=== PATIENT | female | born 1970 | race Two or more races ===

== ENCOUNTER 2020-08-20 12:24 | Outpatient (REF) | payer OTHER, SELFPAY ==
[2020-08-20 13:45] LABS: Alanine Aminotransferase 13 U/L (0-31); Albumin Level 4.3 g/dL (3.5-5.0); Alkaline Phosphatase 130 U/L (39-117); Anion Gap 15 (12-20); Aspartate Amino Transferase 19 U/L (5-31); Bilirubin Total 0.3 mg/dL (0.0-1.0); Blood Urea Nitrogen 14 mg/dL (9-16); Calcium 9.4 mg/dL (8.4-10.2); Carbon Dioxide 28 mmol/L (22-29); Chloride 101 mmol/L (96-108); Estimated Glomerular Filt Rate > 60; Glucose Random 90 mg/dL (60-115); Potassium 4.5 mmol/l (3.3-5.1); Sodium 139 mmol/L (135-145)
[2020-08-20 14:07] LABS: Thyroid Stimulating Hormone 0.91 uIU/mL (0.32-4.0); Vitamin D 25-OH Total 24.5 ng/mL (>30)
[2020-08-22 08:42] LABS: Calcium (PTHI) 9.5 mg/dL (8.6-10.2); PTHI 63 pg/mL (14-64)
== END 2020-08-20 12:25 | disposition home or self-care (01) ==
LOC: HO.LAB 12:24
PROVIDERS: PCP Internal Medicine; Visit Provider Internal Medicine
DX: M81.0 Age-related osteoporosis without current pathological fracture (principal); E55.9 Vitamin D deficiency, unspecified; E04.2 Nontoxic multinodular goiter
CPT/HCPCS: 36415; 80053; 82306; 83970; 84443

== ENCOUNTER → 2020-08-24 07:39 | Outpatient (BNVA) | payer OTHER, SELFPAY | PROVIDERS: PCP Internal Medicine; Referring Provider Internal Medicine; Visit Provider Internal Medicine | DX: M81.0 Age-related osteoporosis without current pathological fracture (principal); E55.9 Vitamin D deficiency, unspecified; E04.2 Nontoxic multinodular goiter | CPT/HCPCS: Q3014 ==

== ENCOUNTER 2020-09-16 08:05 | Outpatient (REF) | payer OTHER, SELFPAY ==
--- NOTE | ~2020-09-16 | MM_ITS ---
EXAMINATION: BONE DENSITOMETRY CLINICAL INDICATION: Osteoporosis. COMPARISON: Baseline BD dated 09/18/2018. Radiographs lumbar spine 09/20/2006. TECHNIQUE: Using a [employer] DXA System (software version: 13.1) manufactured by [employer], dual-energy x-ray absorptiometry was performed of the lumbar spine and left hip. The images are of good technical quality. Summary results are attached. FINDINGS: AP SPINE L2-L4 (excluding L1): The data of L1-L4 has been changed to exclude the L1 vertebral body, because probable mild degenerative change at this level may cause overestimation of lumbar spine density. Current: BMD 0.802 g/cm2, Z-score -3.6, T-score -3.3, osteoporosis, 13.4% increase from baseline (<5% change is not significant). Baseline: BMD 0.707 g/cm2. LEFT FEMUR, NECK: Current: BMD 0.919 g/cm2, Z-score -0.5, T-score -0.9, normal. Prior measured was RIGHT (BMD 0.962 g/cm2, Z-score -0.2, T-score -0.5, normal). LEFT FEMUR, TOTAL: Current: BMD 0.923 g/cm2, Z-score -0.6, T-score -0.7, normal. Prior measured was RIGHT (BMD 0.954 g/cm2, Z-score -0.4, T-score -0.4, normal). IDENTIFIED RISK FACTORS: Early menopause, height loss, osteoporosis, secondary osteoporosis. HISTORY OF FRACTURE: Prior history childhood fracture hip, left. Unremarkable left hip on radiograph 2006. No insufficiency fracture reported. MEDICATIONS: Calcium, vitamin D. MM/XR DEXA axial skeleton IMPRESSION: 1. DIAGNOSIS: Osteoporosis based on the lowest T-score value of -3.3 in the lumbar spine applying World Health Organization criteria. 2. 10-YEAR FRACTURE RISK PREDICTION, FRAX: Major osteoporotic fracture (clinical spine, forearm, hip or shoulder) 1.8%. Hip fracture 0.1%. 3. Treatment Recommendations: NOF guidelines recommend consideration for treatment in postmenopausal women and men age 50 and older presenting with the following: -A hip or vertebral (clinical or morphometric) fracture. -T-score less than or equal to -2.5 at the femoral neck or spine after appropriate evaluation to exclude secondary causes. -Low bone mass at the hip or spine and a 10-year fracture probability by FRAX of greater than or equal to 3% for hip fracture or greater than or equal to 20% for major osteoporotic fracture based on the [place] adapted WHO algorithm. 4. Other Recommendations: All treatment decisions require clinical judgment and consideration of individual patient factors, including patient preferences, comorbidities, previous drug use, risk factors not captured in the FRAX model (e.g. frailty, falls, vitamin D deficiency, increased bone turnover, interval significant decline in bone density) and possible under or overestimation of fracture risk by FRAX. Additional medical evaluation for secondary cause of low bone mineral density may be appropriate. FUTURE SCAN RECOMMENDATION: People with diagnosed cases of osteoporosis or at high risk for fracture should have regular bone mineral density tests. For patients eligible for Medicare, routine testing is allowed once every 2 years. The testing frequency can be increased to one year for patients who have rapidly progressing disease, those who are receiving or discontinuing medical therapy to restore bone mass, or have additional risk factors.
== END 2020-09-16 08:06 | disposition home or self-care (01) ==
LOC: HO.MAMMO 08:05
PROVIDERS: PCP Internal Medicine; Visit Provider Internal Medicine
DX: M81.0 Age-related osteoporosis without current pathological fracture (principal); Z78.0 Asymptomatic menopausal state; Z79.899 Other long term (current) drug therapy
CPT/HCPCS: 77080

== ENCOUNTER → 2020-09-23 07:53 | Outpatient (BNVA) | payer OTHER, SELFPAY | PROVIDERS: PCP Internal Medicine; Visit Provider Internal Medicine Endocrinology, Diabetes & Metabolism | DX: Z71.89 Other specified counseling (principal) | CPT/HCPCS: 99211 ==

== ENCOUNTER → 2020-10-26 07:26 | Outpatient (BNVA) | payer OTHER, SELFPAY | PROVIDERS: PCP Internal Medicine; Visit Provider Internal Medicine | DX: M81.0 Age-related osteoporosis without current pathological fracture (principal); E55.9 Vitamin D deficiency, unspecified; E04.2 Nontoxic multinodular goiter | CPT/HCPCS: Q3014 ==

== ENCOUNTER 2021-02-10 07:19 | Outpatient (REF) | payer OTHER, SELFPAY ==
--- NOTE | ~2021-02-10 | MM_ITS ---
EXAMINATION: MM SCREENING DIGITAL BREAST TOMOSYNTHESIS, BILATERAL CLINICAL INFORMATION: Screening. Asymptomatic. The lifetime risk of breast cancer based on the Tyrer-Cuzick Model is 9%. COMPARISON: Mammography: 01/29/2020, 09/18/2018, 07/12/2014 TECHNIQUE: Digital breast tomosynthesis is performed in both the craniocaudal and mediolateral oblique views along with computer-aided detection (CAD). Synthesized 2D images are generated from the tomosynthesis. FINDINGS: There are scattered areas of fibroglandular density (ACR BI-RADS breast composition Category b). Breast tissue composition borders on heterogeneously dense. Parenchymal pattern is similar to prior studies. There is no interval mass or architectural abnormality or abnormal calcifications. The axilla and skin contours are unremarkable. MM/MM tomosynthesis screening BI IMPRESSION: No mammographic evidence of malignancy. ASSESSMENT: BI-RADS 1: Negative RECOMMENDATION: Routine annual mammography screening. This patient's information was entered into a reminder system with a target due date for their next mammogram.
== END 2021-02-10 07:20 | disposition home or self-care (01) ==
LOC: HO.MAMMO 07:19
PROVIDERS: PCP Internal Medicine; Visit Provider Internal Medicine
DX: Z12.31 Encounter for screening mammogram for malignant neoplasm of breast (principal)
CPT/HCPCS: 77063; 77067

== ENCOUNTER → 2021-04-26 07:56 | Outpatient (BNVA) | payer OTHER, SELFPAY | PROVIDERS: PCP Internal Medicine; Visit Provider Internal Medicine ==

== ENCOUNTER 2021-04-27 06:08 | Outpatient (REF) | payer OTHER, SELFPAY ==
[2021-04-27 07:34] LABS: Albumin Level 4.2 g/dL (3.5-5.0); Calcium 9.6 mg/dL (8.4-10.2)
[2021-04-27 07:52] LABS: Vitamin D 25-OH Total 32.6 ng/mL (>30)
[2021-04-29 05:52] LABS: Calcium (PTHI) 9.6 mg/dL (8.6-10.2); PTHI 48 pg/mL (14-64)
== END 2021-04-27 06:09 | disposition home or self-care (01) ==
LOC: HO.LAB 06:08
PROVIDERS: PCP Internal Medicine; Visit Provider Internal Medicine
DX: M81.0 Age-related osteoporosis without current pathological fracture (principal); E55.9 Vitamin D deficiency, unspecified
CPT/HCPCS: 36415; 82040; 82306; 82310; 83970

== ENCOUNTER 2021-07-16 11:43 | Outpatient (REF) | payer OTHER, SELFPAY ==
[2021-07-16 12:23] LABS: Influenza A PCR NEGATIVE (Negative); Influenza B PCR NEGATIVE (Negative); Resp Syncy Virus RNA Qual PCR NEGATIVE (Negative); SARS COV2 PCR INHOUSE POSITIVE (Negative)
== END 2021-07-16 11:44 | disposition home or self-care (01) ==
LOC: HO.LNP 11:43
PROVIDERS: Visit Provider Physician Assistant Medical
DX: Z20.822 Contact with and (suspected) exposure to COVID-19 (principal); J06.9 Acute upper respiratory infection, unspecified
CPT/HCPCS: 0241U

== ENCOUNTER 2021-10-20 06:10 | Outpatient (REF) | payer OTHER, SELFPAY ==
[2021-10-20 06:41] LABS: MANUAL DIFF FLAG NO
[2021-10-20 07:31] LABS: Basophils Percent Auto 0.8 % (0-2); Eosinophils Absolute Auto 0.3 X10*3/uL (0.0-0.4); Eosinophils Percent Auto 5.4 % (0-4); Imm Gran Abs Auto 0.02 X10*3/uL (0.00-0.03); Imm Gran Pct Auto 0.4 % (0.0-0.4); Lymphocytes Absolute Auto 1.3 X10*3/uL (1.2-4.9); Lymphocytes Percent Auto 25.1 % (20-40); Mean Corpuscular HGB Conc 31.4 g/dl (31.0-35.0); Mean Corpuscular Hemoglobin 28.4 pg (27.0-33.0); Mean Corpuscular Volume 90.4 fL (80.0-98.0); Mean Platelet Volume 9.1 fL (9.4-12.3); Monocytes Absolute Auto 0.4 X10*3/uL (0.1-1.2); Monocytes Percent Auto 8.3 % (2-11); Neutrophils Absolute Auto 3.1 x10*3/uL (2.0-8.3); Platelet Count 313 X10*3/uL (160-400); Red Blood Count 3.87 X10*6/uL (4.20-5.50); Red Cell Distribution Width 13.5 % (11.0-16.0); White Blood Count 5.2 X10*3/uL (4.8-10.8)
[2021-10-20 07:58] LABS: Alanine Aminotransferase 13 U/L (0-31); Albumin Level 3.9 g/dL (3.5-5.0); Alkaline Phosphatase 116 U/L (39-117); Anion Gap 11 (12-20); Aspartate Amino Transferase 17 U/L (5-31); Bilirubin Total 0.3 mg/dL (0.0-1.0); Blood Urea Nitrogen 12 mg/dL (9-16); Calcium 9.1 mg/dL (8.4-10.2); Carbon Dioxide 29 mmol/L (22-29); Chloride 103 mmol/L (96-108); Cholesterol 173 mg/dL; Estimated Glomerular Filt Rate > 60; Glucose Fasting 96 mg/dL (60-99); HDL Cholesterol 46 mg/dL; LDL Cholesterol Calculated 111 mg/dl; Phosphorus 3.8 mg/dL (2.7-4.5); Potassium 4.3 mmol/L (3.3-5.1); Sodium 139 mmol/L (135-145); Total Protein 7.2 g/dL (6.5-8.0); Triglycerides 82 mg/dL
[2021-10-20 08:27] LABS: Free T4 (Free Thyroxine) 1.18 ng/dL (0.71-1.85); Thyroid Stimulating Hormone 1.62 uIU/mL (0.32-4.0)
[2021-10-20 08:48] LABS: Appearance Urine HAZY; Color Urine YELLOW; Glucose Urine UA NEG (NEG); Leukocyte Esterase Urine 1+ (NEG); Nitrite Urine NEG (NEG); PH 6.5 (5.0-8.0); Specific Gravity - Urine 1.025 (1.005-1.025); UACC Culture Trigger YES; Urine Blood NEG (NEG); Urine Ketones NEG (NEG); Urine Protein NEG (NEG-TRACE)
[2021-10-20 09:09] LABS: Bacteria Urine 1+ /LPF; Mucus Urine 1+ /LPF; RBC Urine 0 /HPF (0); Squamous Epithelial Cell Urine 2+ /LPF
[2021-10-21 16:26] LABS: PTHI 79 pg/mL (16-77)
== END 2021-10-20 06:11 | disposition home or self-care (01) ==
LOC: HO.LAB 06:10
PROVIDERS: Absent Provider Internal Medicine; PCP Internal Medicine; Visit Provider Internal Medicine
DX: Z00.00 Encounter for general adult medical examination without abnormal findings (principal); E78.00 Pure hypercholesterolemia, unspecified; E03.9 Hypothyroidism, unspecified; E55.9 Vitamin D deficiency, unspecified; M81.0 Age-related osteoporosis without current pathological fracture
CPT/HCPCS: 36415; 80053; 80061; 81001; 82306; 83970; 84100; 84439; 84443; 85025; 87086; 87147

== ENCOUNTER → 2021-10-25 07:48 | Outpatient (BNVA) | payer OTHER, SELFPAY | PROVIDERS: PCP Internal Medicine; Visit Provider Internal Medicine | DX: M81.0 Age-related osteoporosis without current pathological fracture (principal); E55.9 Vitamin D deficiency, unspecified; E04.2 Nontoxic multinodular goiter | CPT/HCPCS: 99212 ==

== ENCOUNTER 2021-12-15 13:43 | Outpatient (REF) | payer OTHER, SELFPAY ==
[2021-12-15 14:30] LABS: Influenza A PCR NEGATIVE (Negative); Influenza B PCR NEGATIVE (Negative); Resp Syncy Virus RNA Qual PCR NEGATIVE (Negative); SARS COV2 PCR INHOUSE NEGATIVE (Negative)
== END 2021-12-15 13:44 | disposition home or self-care (01) ==
LOC: HO.LNP 13:43
PROVIDERS: Visit Provider Family Medicine
DX: Z20.822 Contact with and (suspected) exposure to COVID-19 (principal); B34.9 Viral infection, unspecified
CPT/HCPCS: 0241U

== ENCOUNTER 2022-02-16 07:15 | Outpatient (REF) | payer OTHER, SELFPAY ==
[2022-02-16 09:08] LABS: Appearance Urine CLEAR; Color Urine YELLOW; Glucose Urine UA NEG (NEG); Leukocyte Esterase Urine NEG (NEG); Nitrite Urine NEG (NEG); PH 5.5 (5.0-8.0); Specific Gravity - Urine >= 1.030 (1.005-1.025); UACC Culture Trigger NO; Urine Blood TRACE (NEG); Urine Ketones NEG (NEG); Urine Protein NEG (NEG-TRACE)
[2022-02-16 09:29] LABS: Alanine Aminotransferase 10 U/L (0-31); Albumin Level 4.1 g/dL (3.5-5.0); Alkaline Phosphatase 121 U/L (39-117); Anion Gap 12 (12-20); Aspartate Amino Transferase 16 U/L (5-31); Bilirubin Total 0.3 mg/dL (0.0-1.0); Blood Urea Nitrogen 16 mg/dL (9-16); Calcium 9.2 mg/dL (8.4-10.2); Carbon Dioxide 29 mmol/L (22-29); Chloride 102 mmol/L (96-108); Estimated Glomerular Filt Rate > 60; Glucose Random 91 mg/dL (60-115); Phosphorus 3.9 mg/dL (2.7-4.5); Potassium 4.6 mmol/L (3.3-5.1); Sodium 138 mmol/L (135-145); Total Protein 7.6 g/dL (6.5-8.0)
[2022-02-16 09:30] LABS: Squamous Epithelial Cell Urine 2+ /LPF
[2022-02-16 09:31] LABS: RBC Urine 0-2 /HPF (0); WBC Urine 0-2 /HPF (0-4)
[2022-02-16 09:40] LABS: Vitamin D 25-OH Total 29.8 ng/mL (>30)
[2022-02-18 11:17] LABS: Calcium (PTHI) 9.3 mg/dL (8.6-10.4); PTHI 43 pg/mL (16-77)
== END 2022-02-16 07:16 | disposition home or self-care (01) ==
LOC: HO.LAB 07:15
PROVIDERS: PCP Internal Medicine; Visit Provider Internal Medicine
DX: Z00.00 Encounter for general adult medical examination without abnormal findings (principal); M81.0 Age-related osteoporosis without current pathological fracture; E55.9 Vitamin D deficiency, unspecified
CPT/HCPCS: 36415; 80053; 81001; 81003; 82306; 83970; 84100

== ENCOUNTER 2022-03-16 07:19 | Outpatient (REF) | payer OTHER, SELFPAY ==
[2022-03-16 08:25] LABS: Alanine Aminotransferase 11 U/L (0-31); Alkaline Phosphatase 114 U/L (39-117); Anion Gap 13 (12-20); Aspartate Amino Transferase 19 U/L (5-31); Bilirubin Total 0.2 mg/dL (0.0-1.0); Blood Urea Nitrogen 12 mg/dL (9-16); Calcium 8.8 mg/dL (8.4-10.2); Carbon Dioxide 29 mmol/L (22-29); Chloride 103 mmol/L (96-108); Estimated Glomerular Filt Rate > 60; Glucose Random 102 mg/dL (60-115); Phosphorus 3.4 mg/dL (2.7-4.5); Sodium 141 mmol/L (135-145); Total Protein 7.4 g/dL (6.5-8.0)
== END 2022-03-16 07:20 | disposition home or self-care (01) ==
LOC: HO.LAB 07:19
PROVIDERS: PCP Internal Medicine; Visit Provider Internal Medicine
DX: Z00.00 Encounter for general adult medical examination without abnormal findings (principal); M81.0 Age-related osteoporosis without current pathological fracture; E55.9 Vitamin D deficiency, unspecified
CPT/HCPCS: 36415; 80053; 82306; 84100

== ENCOUNTER 2022-03-17 08:49 | Outpatient (REF) | payer OTHER, SELFPAY | END 2022-03-17 08:50 | disposition home or self-care (01) | LOC: HO.MDS 08:49 | PROVIDERS: Visit Provider Internal Medicine | DX: M81.0 Age-related osteoporosis without current pathological fracture (principal) | CPT/HCPCS: 96365; J3489 ==

== ENCOUNTER 2022-03-22 07:00 | Outpatient (RCR) | payer OTHER, SELFPAY ==
[2022-02-15 08:03] VITALS: BP 122/70; PULSE 116; O2SAT 98
== END 2022-04-12 14:50 | disposition home or self-care (01) ==
LOC: HO.PTWFD 07:00
PROVIDERS: PCP Internal Medicine; Visit Provider Internal Medicine
DX: S46.812A Strain of other muscles, fascia and tendons at shoulder and upper arm level, left arm, initial encounter (principal)
CPT/HCPCS: 97110; 97140; 97162

== ENCOUNTER → 2022-03-28 07:08 | Outpatient (BNVA) | payer OTHER, SELFPAY | PROVIDERS: PCP Internal Medicine; Visit Provider Internal Medicine | DX: M81.0 Age-related osteoporosis without current pathological fracture (principal); E55.9 Vitamin D deficiency, unspecified; E04.2 Nontoxic multinodular goiter | CPT/HCPCS: 99212 ==

== ENCOUNTER 2022-03-30 07:17 | Outpatient (REF) | payer OTHER, SELFPAY ==
--- NOTE | ~2022-03-30 | MM_ITS ---
EXAMINATION: MM SCREENING DIGITAL BREAST TOMOSYNTHESIS, BILATERAL CLINICAL INFORMATION: Screening. Asymptomatic. The lifetime risk of breast cancer based on the Tyrer-Cuzick Model is 9%. COMPARISON: Mammography: 02/10/2021, 01/29/2020, 09/18/2018 TECHNIQUE: Digital breast tomosynthesis is performed in both the craniocaudal and mediolateral oblique views along with computer-aided detection (CAD). Synthesized 2D images are generated from the tomosynthesis. FINDINGS: There are scattered areas of fibroglandular density (ACR BI-RADS breast composition Category b). Breast tissue composition borders on heterogeneously dense. There are no significant masses, abnormal calcifications, or other abnormalities. There is no developing density or architectural abnormality. The axilla are unremarkable. No significant changes. MM/MM tomosynthesis screening BI IMPRESSION: No mammographic evidence of malignancy. ASSESSMENT: BI-RADS 1: Negative RECOMMENDATION: Routine annual mammography screening. This patient's information was entered into a reminder system with a target due date for their next mammogram.
== END 2022-03-30 07:18 | disposition home or self-care (01) ==
LOC: HO.MAMMO 07:17
PROVIDERS: PCP Internal Medicine; Visit Provider Internal Medicine
DX: Z01.818 Encounter for other preprocedural examination (principal); Z12.31 Encounter for screening mammogram for malignant neoplasm of breast
CPT/HCPCS: 77063; 77067; 99202

== ENCOUNTER 2022-03-31 06:33 | Outpatient (REF) | payer OTHER, SELFPAY ==
[2022-03-31 07:34] LABS: Appearance Urine Clear; Color Urine Yellow; Glucose Urine UA Negative (Negative); Leukocyte Esterase Urine Small (1+) (Negative); Nitrite Urine Negative (Negative); PH 5.5 (5.0-9.0); Specific Gravity - Urine 1.025 (1.005-1.025); Urine Blood Negative (Negative); Urine Ketones Negative (Negative); Urine Protein Negative (Neg-Trace)
[2022-03-31 07:42] LABS: Bacteria Urine None Seen (None Seen); Hyaline Casts Urine 0-2 /LPF (0-2); RBC Urine 0-2 /HPF (0-2); UACC Culture Trigger YES
[2022-03-31 07:45] LABS: Alanine Aminotransferase 11 U/L (0-31); Albumin Level 4.1 g/dL (3.5-5.0); Alkaline Phosphatase 110 U/L (39-117); Anion Gap 15 (12-20); Aspartate Amino Transferase 16 U/L (5-31); Bilirubin Total 0.4 mg/dL (0.0-1.0); Blood Urea Nitrogen 16 mg/dL (9-16); Calcium 8.5 mg/dL (8.4-10.2); Carbon Dioxide 27 mmol/L (22-29); Chloride 103 mmol/L (96-108); Estimated Glomerular Filt Rate > 60; Glucose Random 132 mg/dL (60-115); Potassium 4.1 mmol/L (3.3-5.1); Sodium 141 mmol/L (135-145); Total Protein 7.5 g/dL (6.5-8.0)
[2022-04-01 13:12] LABS: PTHI 114 pg/mL (16-77)
== END 2022-03-31 06:34 | disposition home or self-care (01) ==
LOC: HO.LAB 06:33
PROVIDERS: PCP Internal Medicine; Visit Provider Internal Medicine
DX: M81.0 Age-related osteoporosis without current pathological fracture (principal)
CPT/HCPCS: 36415; 80053; 81001; 83970; 87086; 87147

== ENCOUNTER 2022-04-25 08:38 | Outpatient (REF) | payer OTHER, SELFPAY ==
[2022-04-01 22:37] LABS: HPV mRNA E6/E7 rflx Not Detected (Not Detected)
== END 2022-04-25 08:39 | disposition home or self-care (01) ==
LOC: HO.LAB 08:38
PROVIDERS: Visit Provider Obstetrics & Gynecology
DX: Z01.419 Encounter for gynecological examination (general) (routine) without abnormal findings (principal)
CPT/HCPCS: 87624; 88142

== ENCOUNTER 2022-05-05 13:54 | Outpatient (REF) | payer OTHER, SELFPAY ==
[2022-05-06 13:39] LABS: Influenza A PCR NEGATIVE (Negative); Influenza B PCR NEGATIVE (Negative); Resp Syncy Virus RNA Qual PCR NEGATIVE (Negative); SARS COV2 PCR INHOUSE NEGATIVE (Negative)
== END 2022-05-05 13:55 | disposition home or self-care (01) ==
LOC: HO.LAB 13:54
PROVIDERS: Visit Provider Nurse Practitioner Family
DX: Z20.822 Contact with and (suspected) exposure to COVID-19 (principal); R09.89 Other specified symptoms and signs involving the circulatory and respiratory systems
CPT/HCPCS: 0241U

== ENCOUNTER 2022-06-24 06:02 | Outpatient (REF) | payer OTHER, SELFPAY ==
--- NOTE | ~2022-06-24 | XR_ITS ---
EXAMINATION: XR CHEST CLINICAL INFORMATION: Cough COMPARISON: Previous chest x-ray November 2006 TECHNIQUE: 2 views of the chest were obtained. FINDINGS: No significant abnormality is noted involving the heart, lungs, mediastinum, bony thorax or soft tissues. XR/XR chest 2V IMPRESSION: Unremarkable examination.
== END 2022-06-24 06:03 | disposition home or self-care (01) ==
LOC: HO.XRAY 06:02
PROVIDERS: PCP Internal Medicine; Visit Provider Internal Medicine
DX: R05.8 Other specified cough (principal); R06.00 Dyspnea, unspecified
CPT/HCPCS: 71046

== ENCOUNTER 2022-07-28 07:29 | Outpatient (REF) | payer OTHER, SELFPAY ==
--- NOTE | 2022-07-28 10:59 | PFT_ITS ---
Forced vital capacity 82%, FEV1 88%, FEV1/FVC ratio is 87. FEF 25-75 is 111% and MVV 81%. Post bronchodilator therapy, there is no significant change. Total lung capacity 80% and residual volume 66%. Diffusion capacity 71%. CONCLUSION: Normal pulmonary function test and there is no evidence of obstructive or restrictive pulmonary disorder. Compared to PFT on 08/16/2019, the forced vital capacity as well as total lung capacity are slightly improved. Jaren Sher MD MSB/MODL / [id number]
== END 2022-07-28 07:30 | disposition home or self-care (01) ==
LOC: HO.RESP 07:29
PROVIDERS: PCP Internal Medicine; Visit Provider Internal Medicine
DX: R06.00 Dyspnea, unspecified (principal); R05.8 Other specified cough
CPT/HCPCS: 94060; 94727; 94729

== ENCOUNTER 2022-09-21 06:15 | Outpatient (REF) | payer OTHER, SELFPAY ==
[2022-09-21 08:19] LABS: Alanine Aminotransferase 11 U/L (0-31); Albumin Level 3.9 g/dL (3.5-5.0); Alkaline Phosphatase 90 U/L (39-117); Anion Gap 10 (12-20); Aspartate Amino Transferase 15 U/L (5-31); Bilirubin Total 0.4 mg/dL (0.0-1.0); Blood Urea Nitrogen 15 mg/dL (9-16); Carbon Dioxide 31 mmol/L (22-29); Chloride 104 mmol/L (96-108); Estimated Glomerular Filt Rate > 60; Glucose Random 95 mg/dL (60-115); Phosphorus 3.4 mg/dL (2.7-4.5); Potassium 4.4 mmol/L (3.3-5.1); Sodium 141 mmol/L (135-145); Total Protein 7.2 g/dL (6.5-8.0)
[2022-09-21 08:41] LABS: Free T4 (Free Thyroxine) 1.09 ng/dL (0.71-1.85); Thyroid Stimulating Hormone 1.68 uIU/mL (0.32-4.0); Vitamin D 25-OH Total 47.3 ng/mL (>30)
[2022-09-23 13:19] LABS: PTHI 64 pg/mL (16-77)
[2022-09-27 04:14] LABS: N-Telopeptide 38 (see note); NTXCreaRU 188 mg/dL (20-275)
== END 2022-09-21 06:16 | disposition home or self-care (01) ==
LOC: HO.LAB 06:15
PROVIDERS: PCP Internal Medicine; Visit Provider Internal Medicine
DX: M81.0 Age-related osteoporosis without current pathological fracture (principal); E55.9 Vitamin D deficiency, unspecified; E04.2 Nontoxic multinodular goiter
CPT/HCPCS: 36415; 80053; 82306; 82523; 83970; 84100; 84439; 84443

== ENCOUNTER → 2022-09-22 14:04 | Outpatient (BNVA) | payer OTHER, SELFPAY | PROVIDERS: PCP Internal Medicine; Visit Provider Internal Medicine | DX: M81.0 Age-related osteoporosis without current pathological fracture (principal); E04.2 Nontoxic multinodular goiter; E55.9 Vitamin D deficiency, unspecified; Z79.899 Other long term (current) drug therapy | CPT/HCPCS: 99212 ==

== ENCOUNTER 2022-10-14 14:46 | Outpatient (REF) | payer OTHER, SELFPAY ==
--- NOTE | ~2022-10-14 | MM_ITS ---
EXAMINATION: BONE DENSITOMETRY CLINICAL INDICATION: Age-related osteoporosis without current pathological fracture. COMPARISON: Previous BD dated 09/16/2020 and baseline BD dated 09/18/2018 for the spine; the baseline for the left hip is 09/16/2020. TECHNIQUE: Using a [employer] DXA System (software version: 13.1) manufactured by [employer], dual-energy x-ray absorptiometry was performed of the lumbar spine and left hip. The images are of good technical quality. Summary results are attached. FINDINGS: AP SPINE L1-L4: Current: BMD 0.865 g/cm2, Z-score -2.7, T-score -2.6, osteoporosis, 5.1% increase from previous, 20.5% increase from baseline (<5% change is not significant). Prior: BMD 0.823 g/cm2. Baseline: BMD 0.718 g/cm2. LEFT FEMUR, NECK: Current: BMD 0.884 g/cm2, Z-score -0.7, T-score -1.1, osteopenia. Baseline: BMD 0.919 g/cm2. LEFT FEMUR, TOTAL: Current: BMD 0.916 g/cm2, Z-score -0.6, T-score -0.7, normal, 0.8% decrease from baseline (<5% change is not significant). Baseline: BMD 0.923 g/cm2. IDENTIFIED RISK FACTORS: Early menopause, osteoporosis, secondary osteoporosis. HISTORY OF FRACTURE: None listed. MEDICATIONS: Calcium, vitamin D, bisphosphonate. MM/XR DEXA axial skeleton IMPRESSION: 1. DIAGNOSIS: Osteoporosis based on the lowest T-score value of -2.6 in the lumbar spine applying World Health Organization criteria. 2. 10-YEAR FRACTURE RISK PREDICTION, FRAX: According to the guidelines, FRAX calculation should only be performed on patients in the osteopenia bone density category. Therefore, FRAX was not performed on this patient. 3. Treatment Recommendations: NOF guidelines recommend consideration for treatment in postmenopausal women and men age 50 and older presenting with the following: -A hip or vertebral (clinical or morphometric) fracture. -T-score less than or equal to -2.5 at the femoral neck or spine after appropriate evaluation to exclude secondary causes. -Low bone mass at the hip or spine and a 10-year fracture probability by FRAX of greater than or equal to 3% for hip fracture or greater than or equal to 20% for major osteoporotic fracture based on the [place] adapted WHO algorithm. 4. Other Recommendations: All treatment decisions require clinical judgment and consideration of individual patient factors, including patient preferences, comorbidities, previous drug use, risk factors not captured in the FRAX model (e.g. frailty, falls, vitamin D deficiency, increased bone turnover, interval significant decline in bone density) and possible under or overestimation of fracture risk by FRAX. Additional medical evaluation for secondary cause of low bone mineral density may be appropriate. FUTURE SCAN RECOMMENDATION: People with diagnosed cases of osteoporosis or at high risk for fracture should have regular bone mineral density tests. For patients eligible for Medicare, routine testing is allowed once every 2 years. The testing frequency can be increased to one year for patients who have rapidly progressing disease, those who are receiving or discontinuing medical therapy to restore bone mass, or have additional risk factors.
== END 2022-10-14 14:47 | disposition home or self-care (01) ==
LOC: HO.MAMMO 14:46
PROVIDERS: PCP Internal Medicine; Visit Provider Internal Medicine
DX: Z13.820 Encounter for screening for osteoporosis (principal); M81.0 Age-related osteoporosis without current pathological fracture; Z78.0 Asymptomatic menopausal state
CPT/HCPCS: 77080

== ENCOUNTER 2022-10-24 06:01 | Outpatient (REF) | payer OTHER, SELFPAY ==
[2022-10-24 06:10] LABS: MANUAL DIFF FLAG NO
[2022-10-24 08:00] LABS: Appearance Urine Clear; Color Urine Yellow; Glucose Urine UA Negative (Negative); Leukocyte Esterase Urine Small (1+) (Negative); Nitrite Urine Negative (Negative); PH 5.5 (5.0-9.0); Specific Gravity - Urine 1.025 (1.005-1.025); UMIC TRIGGER UACC YES; Urine Blood Negative (Negative); Urine Ketones Negative (Negative); Urine Protein Negative (Neg-Trace)
[2022-10-24 08:00] LABS: Basophils Percent Auto 0.7 % (0-2); Eosinophils Absolute Auto 0.2 X10*3/uL (0.0-0.4); Eosinophils Percent Auto 2.9 % (0-4); Hematocrit 37.3 % (37.0-47.0); Hemoglobin 11.7 g/dl (12.0-16.0); Imm Gran Abs Auto 0.01 X10*3/uL (0.00-0.03); Imm Gran Pct Auto 0.2 % (0.0-0.4); Lymphocytes Absolute Auto 1.6 X10*3/uL (1.2-4.9); Lymphocytes Percent Auto 26.3 % (20-40); Mean Corpuscular HGB Conc 31.4 g/dl (31.0-35.0); Mean Corpuscular Hemoglobin 28.8 pg (27.0-33.0); Mean Corpuscular Volume 91.9 fL (80.0-98.0); Mean Platelet Volume 9.2 fL (9.4-12.3); Monocytes Absolute Auto 0.4 X10*3/uL (0.1-1.2); Monocytes Percent Auto 6.6 % (2-11); Neutrophils Absolute Auto 3.7 x10*3/uL (2.0-8.3); Neutrophils Percent Auto 63.3 % (45-73); Platelet Count 370 X10*3/uL (160-400); Red Blood Count 4.06 X10*6/uL (4.20-5.50); Red Cell Distribution Width 13.3 % (11.0-16.0); White Blood Count 5.9 X10*3/uL (4.8-10.8)
[2022-10-24 08:30] LABS: Bacteria Urine None Seen (None Seen); Hyaline Casts Urine 0-2 /LPF (0-2); RBC Urine 0-2 /HPF (0-2); UACC Culture Trigger YES
[2022-10-24 08:43] LABS: Alanine Aminotransferase 9 U/L (0-31); Alkaline Phosphatase 92 U/L (39-117); Anion Gap 14 (12-20); Aspartate Amino Transferase 17 U/L (5-31); Bilirubin Total 0.3 mg/dL (0.0-1.0); Blood Urea Nitrogen 15 mg/dL (9-16); Calcium 9.1 mg/dL (8.4-10.2); Carbon Dioxide 28 mmol/L (22-29); Chloride 102 mmol/L (96-108); Cholesterol 196 mg/dL; Estimated Glomerular Filt Rate > 60; Glucose Fasting 94 mg/dL (60-99); HDL Cholesterol 51 mg/dL; LDL Cholesterol Calculated 125 mg/dl; Potassium 4.2 mmol/L (3.3-5.1); Sodium 140 mmol/L (135-145); Total Protein 7.2 g/dL (6.5-8.0); Triglycerides 104 mg/dL
[2022-10-24 09:00] LABS: TSH reflex Free T4 2.11 uIU/mL (0.32-4.0)
== END 2022-10-24 06:02 | disposition home or self-care (01) ==
LOC: HO.LAB 06:01
PROVIDERS: PCP Internal Medicine; Visit Provider Internal Medicine
DX: Z00.00 Encounter for general adult medical examination without abnormal findings (principal); E78.00 Pure hypercholesterolemia, unspecified; E55.9 Vitamin D deficiency, unspecified
CPT/HCPCS: 36415; 80053; 80061; 81001; 81003; 82306; 84443; 85025; 87086

== ENCOUNTER 2023-01-23 06:46 | Day surgery (SDC) | payer OTHER, SELFPAY ==
[2023-01-19 12:51] VITALS: BMI 30.3
--- NOTE | 2023-01-20 10:32 | HO.ANESPROP2 ---
Documented by User: Carlene Segovia NP 01/20/23 10:32 HPI - Anesthesia Eval Consult details Narrative: 52yo F for Colonoscopy PMFSH Active Problems Active Problems: All Active Problems (Updated 06/22/22 @ 11:15 by Madhav Rios MD) Recurrent cough (Acute) Dyspnea (Acute) Conjunctivitis (Acute) Allergic pharyngitis (Acute) Pre-op examination (Acute) Well woman exam (Acute) Colon cancer screening (Acute) Strain of left trapezius muscle (Acute) Left shoulder pain (Acute) Bronchitis (Acute) Contact with and (suspected) exposure to other viral communicable diseases (Acute) Viral illness (Acute) Upper respiratory tract infection (Acute) Achilles tendinitis of right lower extremity (Acute) Insomnia (Acute) Overweight (BMI 25.0-29.9) (Acute) Prakash's disease (Acute) Lumbar degenerative disc disease (Acute) Annual physical exam (Acute) Vitamin D deficiency (Acute) Multinodular thyroid (Acute) Osteoporosis (Acute) Past Medical History Medical History Prakash's disease Insomnia Lumbar degenerative disc disease Multinodular thyroid Osteoporosis Overweight (BMI 25.0-29.9) Vitamin D deficiency Family History Family History Father Diabetes Hypertension CVD (cardiovascular disease) Mother Hypertension Maternal Aunt Cancer Daughter No problems noted. Son No problems noted. Sister No problems noted. Brother No problems noted. Surgical History Surgical History History of appendectomy History of myomectomy Social History Social History Housing: House Alcohol intake: never Patient Tobacco Use Status: Never used Tobacco e-Cigarette/Vaping Use: Never Used Second Hand Smoke Exposure: Yes Use of substances other than those prescribed or required for medical reasons: No Are you DNR?: No Advance Directives: No Advance Directives Information Provided: Yes service: No Current occupational status: employed Cognitive needs: No Hearing needs: No Vision needs: No Meds Allergies Allergy/AdvReac Type Severity Reaction Status Date / Time No Known Allergies Allergy Verified 10/18/22 17:42 [No Known Allergies*] Exam Exam Date and Time: January 20, 2023 1032 Height,Weight and Vital Signs: Height 5 ft 5 in Weight 82.554 kg Pertinent Lab Results Pertinent Lab Results: Laboratory Tests 10/24/22 10/24/22 06:09 06:09 WBC 5.9 Hgb 11.7 L Hct 37.3 Plt Count 370 Sodium 140 Potassium 4.2 Chloride 102 Carbon Dioxide 28 BUN 15 Creatinine 0.69 Assessment and Plan Assessment Anesthesia Assessment: Chart Reviewed Documented by User: Cecile Nowak MD 01/23/23 07:48 PMFSH Past Medical History Medical History Prakash's disease Insomnia Lumbar degenerative disc disease Multinodular thyroid Osteoporosis Overweight (BMI 25.0-29.9) Vitamin D deficiency Family History Family History Father Diabetes Hypertension CVD (cardiovascular disease) Mother Hypertension Maternal Aunt Cancer Daughter No problems noted. Son No problems noted. Sister No problems noted. Brother No problems noted. Family history of problems with anesthesia: No Surgical History Surgical History History of appendectomy History of myomectomy History of Problems with Anesthesia: No Social History Social History Housing: House Alcohol intake: never Patient Tobacco Use Status: Never used Tobacco e-Cigarette/Vaping Use: Never Used Second Hand Smoke Exposure: Yes Use of substances other than those prescribed or required for medical reasons: No Are you DNR?: No Advance Directives: No Advance Directives Information Provided: Yes service: No Current occupational status: employed Cognitive needs: No Hearing needs: No Vision needs: No Meds Allergies Allergy/AdvReac Type Severity Reaction Status Date / Time No Known Allergies Allergy Verified 10/18/22 17:42 [No Known Allergies*] Exam Airway Mallampati Class: II TM Dist: >3cm Neck ROM: Full Heart: rrr Lungs: cta Assessment and Plan Assessment Anesthesia Assessment: Anesthesia Plan Discussed Final Anesthetic Review Family History of Problems with Anesthesia: No History of Problems with Anesthesia: No NPO: Yes ASA Class: II Final Preanesthetic Review: No Changes in Pt Med Stat, Meds/Allgs Chart Reviewed and Consent Obtained/Reviewed Patient Risk: Intermediate Procedure Risk: Intermediate Anesthetic Plan Anesthetic Plan: MAC: Disposition: Standard PACU
[2023-01-23 07:23] VITALS: BMI 32.2
[2023-01-23 07:27] VITALS: BP 132/80; PULSE 103; RESP 18; TEMP 36.7; O2SAT 99
--- NOTE | 2023-01-23 07:30 | MHC.SHP ---
Pre-Procedural Eval Section A Date of Service: 01/23/23 The patient is an INPATIENT: No The History & Physical has been completed within 30 days and I have reviewed it.: No Section B Chief Complaint: screening Relevant Family History (Specify if Yes): No Relevant Social History: None Present Medications: see Short Stay Collaborative assessment Medical History: Significant History (Prakash's disease Insomnia Lumbar degenerative disc disease Multinodular thyroid Osteoporosis) History of Previous Operations: Relevant previous surgery/procedure and date(s) (History of appendectomy History of myomectomy) Allergies: Allergies Allergy/AdvReac Type Severity Reaction Status Date / Time No Known Allergies Allergy Verified 10/18/22 17:42 [No Known Allergies*] Review of Systems Sugical H&P ROS: Negative: Constitution, Cardiovascular, Respiratory and Gastrointestinal Exam Surgical H&P Exam: Normal: Heart, Normal: Lungs, Normal: Extremities and Normal: Abdomen Plan Diagnosis/Plan: Unchanged I have reviewed the history and physical and performed a pertinent physical examination on my patient. No changes have occurred unless specified. Time Spent With Patient Time: Total time managing care of this patient today ____ minutes.
[2023-01-23] MEDS: Lactated Ringers 1,000 ML 100 ML IVCONT (07:48)
--- NOTE | 2023-01-23 08:37 | W.PM.OPN ---
Operative Note Operative Note Date of Service: 01/23/23 Narrative: COLONOSCOPY TILL CECUM Pre-op diagnosis: Colon cancer screening Post-op diagnosis:? Diverticulosis Endoscopist:? Javi Medina MD Anesthesia:?MAC Consent: Indications for the procedure and potential complications of bleeding, perforation, reaction to medications and missed diagnosis were discussed with the patient and informed consent was obtained. Instrument: Olympus PCF H 190 L variable stiffness pediatric colonoscope Monitoring: Vital signs and clinical assessment, intermittent blood pressure monitoring, continuous EKG monitoring, Pulse oximetry and Carbon Dioxide monitoring were done throughout the procedure. Please see anesthesia flowsheet. Colon withdrawl time was 15 minutes. Procedure: The patient was placed in the left lateral decubitis position and pre-procedure medications were administered. After a digital rectal examination of the ano-rectum, the video colonoscope was inserted into the rectum and advanced through the colon to the cecum. The colonoscope was slowly withdrawn in a retrograde panoramic fashion and the colon mucosa was carefully examined including a retroflexed view of the rectum. Findings and interventions are described below. Procedure Difficulty: Colon was tortuous and there was recurrent loop formation - no maneuvers were required Findings: Terminal Ileum: Not evaluated Cecum: Normal Ascending Colon: Normal Transverse Colon: Normal Descending Colon: Normal Sigmoid Colon: Moderate diverticulosis Rectum: Normal Ano-rectum: Normal Colon preparation: Excellent Impression and Post Procedure Diagnosis: Colonoscopy Findings: No polyps were detected Moderate diverticulosis seen in the sigmoid colon Plan: Patient has an appointment on 02/28/23 in the [facility] Clinic with Tanna Gilbert NP. Repeat Colonoscopy in 10 years (earlier if pt develops symptoms or new family hx). Above findings were reviewed with the patient and diverticulosis handout was given in the discharge area
[2023-01-23 09:10] VITALS: BP 89/66; PULSE 94; RESP 16; TEMP 36.3; O2SAT 97
[2023-01-23 09:18] VITALS: BP 115/69
[2023-01-23 09:25] VITALS: BP 124/76; PULSE 84; RESP 16; O2SAT 99
[2023-01-23 09:40] VITALS: BP 133/78; PULSE 83; RESP 16; TEMP 36.2; O2SAT 99
== END 2023-01-23 10:37 | disposition home or self-care (01) ==
PROVIDERS: PCP Internal Medicine; Visit Provider Internal Medicine Gastroenterology
PROC: 0DJD8ZZ Inspection of Lower Intestinal Tract, Via Natural or Artificial Opening Endoscopic (ICD-10-PCS; CPT 45378; principal; 2023-01-23 08:30)
DX: Z12.11 Encounter for screening for malignant neoplasm of colon (principal); K57.30 Diverticulosis of large intestine without perforation or abscess without bleeding; E06.3 Autoimmune thyroiditis; E04.2 Nontoxic multinodular goiter; G47.00 Insomnia, unspecified; M51.36 Other intervertebral disc degeneration, lumbar region; M81.0 Age-related osteoporosis without current pathological fracture; E55.9 Vitamin D deficiency, unspecified; E66.3 Overweight; Z68.30 Body mass index [BMI] 30.0-30.9, adult; Z79.899 Other long term (current) drug therapy; Z79.1 Long term (current) use of non-steroidal anti-inflammatories (NSAID)
CPT/HCPCS: 45378

== ENCOUNTER 2023-03-09 06:28 | Outpatient (REF) | payer OTHER, SELFPAY ==
[2023-03-09 08:09] LABS: Alanine Aminotransferase 11 U/L (0-31); Albumin Level 4.1 g/dL (3.5-5.0); Alkaline Phosphatase 89 U/L (39-117); Anion Gap 12 (12-20); Aspartate Amino Transferase 16 U/L (5-31); Bilirubin Total 0.3 mg/dL (0.0-1.0); Blood Urea Nitrogen 12 mg/dL (9-16); Calcium 9.3 mg/dL (8.4-10.2); Carbon Dioxide 29 mmol/L (22-29); Chloride 104 mmol/L (96-108); Estimated Glomerular Filt Rate > 60; Glucose Random 93 mg/dL (60-115); Phosphorus 3.4 mg/dL (2.7-4.5); Potassium 3.8 mmol/L (3.3-5.1); Sodium 141 mmol/L (135-145); Total Protein 7.9 g/dL (6.5-8.0)
[2023-03-09 08:28] LABS: Free T4 (Free Thyroxine) 0.95 ng/dL (0.71-1.85); Thyroid Stimulating Hormone 1.36 uIU/mL (0.32-4.0); Vitamin D 25-OH Total 48.7 ng/mL (>30)
[2023-03-10 19:38] LABS: PTHI 85 pg/mL (16-77)
[2023-03-16 22:54] LABS: N-Telopeptide 36 (see note); NTXCreaRU 149 mg/dL (20-275)
== END 2023-03-09 06:29 | disposition home or self-care (01) ==
LOC: HO.LAB 06:28
PROVIDERS: PCP Internal Medicine; Visit Provider Internal Medicine
DX: M81.0 Age-related osteoporosis without current pathological fracture (principal); E04.2 Nontoxic multinodular goiter; E55.9 Vitamin D deficiency, unspecified
CPT/HCPCS: 36415; 80053; 82306; 82523; 83970; 84100; 84439; 84443

== ENCOUNTER → 2023-03-22 07:23 | Outpatient (BNVA) | payer OTHER, SELFPAY | PROVIDERS: PCP Internal Medicine; Visit Provider Internal Medicine ==

== ENCOUNTER 2023-03-24 13:59 | Outpatient (AMB) | payer OTHER, SELFPAY ==
--- NOTE | 2023-03-24 14:00 | A.OFFVIS_ITS ---
Intake Vital Signs 03/24/23 14:03 Height 5 ft 5.5 in Weight 184 lb 15.485 oz BMI 30.3 BP 102/70 Blood Pressure Location Lt brachial Position Sitting Pulse 124 H Pulse Source Pulse Oximeter Intake Visit Reasons: Osteoporosis Intake Note: Patient present today for Osteoporosis office visit. 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 The patient last saw Dr. Rodriguez on 09/22/2022 1) Osteoporosis: First diagnosed in August of 2018. Began treatment with Tymlos 09/23/2020. Completed 18 months of this in February 2022 and was transitioned to IV Reclast with her first dose 03/17/2022. She had a full workup for secondary causes of Osteoporosis which was all WNL.. Recently, PTH level was elevated No history of pathologic fracture or ONJ. Has 1-2 servings of dietary calcium per day in the form of milk and cheese. Currently not taking Calcium daily. Takes Vitamin D 4000 IU daily. Denies ever using PPI, anticoagulant, antiepileptic or glucocorticoid medication. Does weight bearing exercise 3 days per week for 60 minutes a time in the form of walking. Fracture history: Traumatic fracture of the L leg at age 7. Height loss: Denies. 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 , breastfed for 9 months in total. Menopause was age 39. She did not use HRT after. History of Kidney stones: Denies. Family history of Osteoporosis in her Mother. UTD on dental cleanings and sees dentist every 6 months. She did have dental extractions in April 2019, and treatment was delayed due to this. She had a dental implant started in Aug 2019, and did require bone grafting after. The second stage of this procedure was delayed due to COVID 19, and she has had some issues with graft acceptance/healing. DXA dated 09/16/2020: FINDINGS: AP SPINE L2-L4 (excluding L1): The data of L1-L4 has been changed to exclude the L1 vertebral body, because probable mild degenerative change at this level may cause overestimation of lumbar spine density. Current: BMD 0.802 g/cm2, Z-score -3.6, T-score -3.3, osteoporosis, 13.4% increase from baseline (<5% change is not significant). Baseline: BMD 0.707 g/cm2. LEFT FEMUR, NECK: Current: BMD 0.919 g/cm2, Z-score -0.5, T-score -0.9, normal. Prior measured was RIGHT (BMD 0.962 g/cm2, Z-score -0.2, T-score -0.5, normal). LEFT FEMUR, TOTAL: Current: BMD 0.923 g/cm2, Z-score -0.6, T-score -0.7, normal. Prior measured was RIGHT (BMD 0.954 g/cm2, Z-score -0.4, T-score -0.4, normal). 2) Nontoxic MNG: Patient with palpable goiter. Had thyroid US which revealed a multinodular goiter. Images were reviewed, and this represented a marcos gland with only pseudnodules, no true nodules. She was referred to Dr. Mark to discuss total thyroidectomy due to compressive symptoms. No surgery was recommended. She denies any compressive symptoms currently. Thyroid US: 03/19/19 FINDINGS: SIZE: Measurements of the thyroid lobes and nodules are given in sagittal, anteroposterior and transverse dimensions respectively. Right Thyroid Lobe: 5.9 x 2.0 x 2.0 cm, volume 12.7 mL. Parenchyma: The gland echotexture is heterogeneous. Thyroid vascularity is normal. Left Thyroid Lobe: 5.6 x 1.7 x 2.1 cm, volume 10.1 mL. Parenchyma: The gland echotexture is heterogeneous. Thyroid vascularity is normal. Isthmus: 0.7 cm in maximum AP dimension. RIGHT THYROID LOBE: There is 1 nodule seen. 1. Location: Superior. Size: 0.3 x 0.2 x 0.2 cm. Nodule characteristics: Hypoechoic and cystic, smooth margin, no calcification and no flow.. ISTHMUS: No nodules. LEFT THYROID LOBE: There is 1 nodule seen. 1. Location: Medial mid. Size: 2.3 x 0.7 x 1.7 cm. Nodule characteristics: Hypoechoic and heterogeneous, smooth margin, no calcification and positive intranodular flow. NODES: No lymphadenopathy is seen in the tissue surrounding the thyroid gland. Labs: Laboratory Tests 03/16/22 09/21/22 07:32 06:26 Sodium 141 Potassium 4.4 Creatinine 0.73 Estimated GFR > 60 25-OH Vitamin D To orin 37.0 47.3 TSH 1.68 Free T4 1.09 Nofx since last visit. No compressive sx from goiter PFSH Medical History Prakash's disease Insomnia Lumbar degenerative disc disease Multinodular thyroid Osteoporosis Overweight (BMI 25.0-29.9) Vitamin D deficiency Surgical History History of appendectomy History of myomectomy History of tooth extraction Family History Father Diabetes Hypertension CVD (cardiovascular disease) Mother Hypertension Maternal Aunt Cancer Daughter No problems noted. Son No problems noted. Sister No problems noted. Brother No problems noted. Social History Housing: House Alcohol intake: never Patient Tobacco Use Status: Never used Tobacco e-Cigarette/Vaping Use: Never Used Second Hand Smoke Exposure: Yes service: No Current occupational status: employed Cognitive needs: No Hearing needs: No Vision needs: No Physical Exam Vital Signs: Last Vital Signs Pulse 124 H 03/24/23 14:03 BP 102/70 03/24/23 14:03 BMI result Body Mass Index 30.3 Const Other: Thyroid gland is normal size weighs about 15 g. No thyroid nodules palpated .There is no tenderness on palpation of the spine Assessment & Plan Assessment & Plan (1) Multinodular thyroid: Code(s): E04.2 - Nontoxic multinodular goiter Plan: Has pseudo nodules. Appears to be clinically biochemically euthyroid (2) Osteoporosis: Code(s): M81.0 - Age-related osteoporosis without current pathological fracture Qualifiers: Osteoporosis type: unspecified Presence of current pathological fracture: unspecified Qualified Code(s): M81.0 - Age-related osteoporosis without current pathological fracture Plan: This this is a 52-year-old female with a history of osteoporosis who received a full course of Tymlos proceeded by 1 dose of Reclast. Recent DEXA bone density showed stability and she has suppressed urine NTX. Secondary workup was negative but recently, PTH was slightly elevated Plan is to continue with calcium and vitamin-D. Will reassess calcium, 25 hydroxy vitamin-D and PTH in about 3-6 months time as PTH could either be reflection of residual from vitamin-D deficiency and secondary hyperparathyroidism or as a result of anti resorptive therapy or could be mild primary hyperparathyroidism. Orders: Orders PTHI 3 Months E55.9 - Vitamin D deficiency, unspecified Vitamin D 25-OH Total 3 Months E55.9 - Vitamin D deficiency, unspecified Coding Level of Care Code Est Pt Level 4 (62787) Diagnoses Multinodular thyroid E04.2 Osteoporosis M81.0 Osteoporosis type: unspecified Presence of current pathological fracture: unspecified
[2023-03-24 14:03] VITALS: BP 102/70; PULSE 124; BMI 30.3
== END 2023-03-24 14:34 | disposition home or self-care (01) ==
PROVIDERS: PCP Internal Medicine; Visit Provider Internal Medicine Endocrinology, Diabetes & Metabolism
DX: E04.2 Nontoxic multinodular goiter (principal); M81.0 Age-related osteoporosis without current pathological fracture
CPT/HCPCS: 99214

== ENCOUNTER → 2023-03-24 13:59 | Outpatient (BNVA) | payer OTHER, SELFPAY | PROVIDERS: PCP Internal Medicine; Visit Provider Internal Medicine Endocrinology, Diabetes & Metabolism | DX: M81.0 Age-related osteoporosis without current pathological fracture (principal); E28.319 Asymptomatic premature menopause; E04.2 Nontoxic multinodular goiter; E55.9 Vitamin D deficiency, unspecified | CPT/HCPCS: 99212 ==

== ENCOUNTER 2023-04-13 13:35 | Outpatient (AMB) | payer OTHER, SELFPAY ==
[2023-04-13 13:52] VITALS: BP 110/70; BMI 30.2
--- NOTE | 2023-04-13 13:52 | A.OFFVIS_ITS ---
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 No complaints. Last Pap/HPV was negative in 04/21 Last Mammogram was BI-RADS 1 in 03/21 Last Colonoscopy was done in 01/20, the recommendation was to repeat in 10 years [facility] Medical History Insomnia Overweight (BMI 25.0-29.9) Prakash's disease Lumbar degenerative disc disease Vitamin D deficiency Multinodular thyroid Osteoporosis Surgical History History of tooth extraction History of myomectomy History of appendectomy Family History Father Diabetes Hypertension CVD (cardiovascular disease) Mother Hypertension Maternal Aunt Cancer Daughter No problems noted. Son No problems noted. Sister No problems noted. Brother No problems noted. Social History Housing: House Alcohol intake: never Patient Tobacco Use Status: Never used Tobacco e-Cigarette/Vaping Use: Never Used Second Hand Smoke Exposure: Yes service: No Current occupational status: employed Cognitive needs: No Hearing needs: No Vision needs: No Female Reproductive History Menstrual control method: none Total pregnancies: 2 Full term: 2 Number of Living Children: 2 Date of last pap smear: 03/31/22 (negative) Date of Mammogram: 03/30/22 Date of last Bone Density Screenin10/14/22 Review of Systems Const All systems reviewed & are unremarkable except as noted in HPI and below Card Reports as per HPI Resp Reports as per HPI GI Reports as per HPI and Reports no additional complaints Reports as per HPI Physical Exam Vital Signs: Last Vital Signs BP 110/70 04/13/23 13:52 BMI result Body Mass Index 30.2 Const General: cooperative, healthy appearing and comfortable Chest Chest palpation & inspection: normal inspection of the chest and normal palpation of entire chest wall Breast/axilla inspection: normal inspection of the breasts and normal inspection of the axillae Breast/axilla palpation: normal palpation of the breasts, normal palpation of the axillae and no axillary lymphadenopathy Resp Effort & Inspection: normal respiratory effort Auscultation: clear to auscultation bilaterally Percussion: percussion normal Cardio Palpation: normal PMI Rate: regular rate Rhythm: regular rhythm Heart sounds: no murmurs and no rubs Peripheral pulses: Peripheral pulses 2+ throughout GI Inspection: Yes normal to inspection Palpation (GI): Soft to palpation, nontender, no guarding, not rigid and No hepatosplenomegaly present Percussion: Yes normal to percussion Auscultation: normal bowel sounds Rectal Exam - Female: deferred General: Yes bladder normal to palpation External Female Exam: No lesion Speculum Exam - Vagina: normal appearance of the vagina, normal palpation, normal vaginal discharge and not erythematous Speculum Exam - Cervix: normal appearance of the cervix and normal palpation Bimanual exam- vagina & uterus: normal bimanual exam, normal palpation, uterine size normal, bladder normal to palpation, consistency normal and normal palpation Bimanual Exam- Adnexa, other: normal adnexae, no masses and no tenderness Assessment & Plan Assessment & Plan (1) Well woman exam: Code(s): Z01.419 - Encounter for gynecological examination (general) (routine) without abnormal findings Plan: Co testing done. Counseled the patient about the recommended dietary allowance of 1200 mg of Calcium & 600 IU of vitamin D. Mammogram ordered , the patient is up-to-date with screening colonoscopy . The patient was instructed to perform monthly self-breast exams and schedule annual exam in a year; all questions answered and the patient verbalized understanding. Orders: Orders MM screening mammo BI Today Z12.31 - Encounter for screening mammogram for malignant neoplasm of breast Coding Level of Care Code Est Pt Prev Care 40-64y(17988) Diagnoses Well woman exam Z01.419
== END 2023-04-13 14:05 | disposition home or self-care (01) ==
PROVIDERS: Visit Provider Obstetrics & Gynecology
DX: Z01.419 Encounter for gynecological examination (general) (routine) without abnormal findings (principal)
CPT/HCPCS: 99396

== ENCOUNTER 2023-04-13 15:25 | Outpatient (REF) | payer OTHER, SELFPAY | END 2023-04-13 15:26 | disposition home or self-care (01) | LOC: HO.MAMMO 15:25 | PROVIDERS: PCP Internal Medicine; Visit Provider Internal Medicine | DX: Z12.31 Encounter for screening mammogram for malignant neoplasm of breast (principal) | CPT/HCPCS: 77063; 77067 ==

== ENCOUNTER → 2023-04-13 15:45 | Outpatient (BNV) | payer OTHER, SELFPAY | PROVIDERS: PCP Internal Medicine; Visit Provider Radiology Diagnostic Radiology | DX: Z12.31 Encounter for screening mammogram for malignant neoplasm of breast (principal) | CPT/HCPCS: 77063; 77067 ==

== ENCOUNTER 2023-04-19 15:59 | Outpatient (AMB) | payer OTHER, SELFPAY ==
[2023-04-19 16:02] VITALS: BP 100/72; PULSE 95; O2SAT 97
--- NOTE | 2023-04-19 16:02 | A.OFFPC_ITS ---
Vital Signs 04/19/23 16:02 Height 5 ft 5.5 in Weight 183 lb BMI 30.0 BP 100/72 Blood Pressure Location Lt brachial Position Sitting Pulse 95 Pulse Source Pulse Oximeter Pulse Oximetry (%) 97 Oxygen Delivery Method Room Air Intake Visit Reasons: 6 month f/u Convertible Sofa Bedspring Tester Required: No Accompanied by: Self / Same As Patient Allergies No Known Allergies [No Known Allergies*] Allergy (Verified 04/19/23 16:39) Medication List - Last Reconciled 04/19/23 by Madhav Rios MD albuterol sulfate 90 mcg/actuation 2 puffs inhalation Q6H PRN calcium carb,lactat-vitamin D3 200 mg-6.25 mcg (250 unit) (Calcet Petites) 2 tabs PO BID 30 days cholecalciferol (vitamin D3) 50 mcg PO DAILY 90 days ibuprofen 800 mg PO Q8H PRN 30 days Tobacco use date assessed: 04/19/23 Dental Screening Dental Screen Date: 04/19/23 Did you have a dental visit in the last 12 months?: Yes Did you have a dental problem in the last 6 months where you did not have access to dental care?: No Was dental information given to patient?: Patient has dentist HPI 6 month f/u HPI Details Patient comes in today for her follow up visit States that she currently feels okay Was seen by Dr. Herman for follow up of her osteoporosis last month States that she was not given her next dose of Reclast that she thought was due and was advised by Dr. Herman to just continue on her Calcium and Vitamin D supplements and he will have her recheck some labs in a few months for follow up - is not sure what is going on She denies any headaches or dizziness Denies any chest pains, no SOB No nausea/vomiting, no abdominal pain No change in bowel habits noted Had some follow up labs done for Dr. Herman last month and these were not fasting labs Adds that she had her colonoscopy done with Dr. Medina a few months ago on 01/23/23 - colonoscopy was normal and she was advised to get a repeat colonoscopy in 10 years [facility] Medical History (Updated 04/19/23 @ 16:51 by Madhav Rios MD) Insomnia Overweight (BMI 25.0-29.9) Prakash's disease Lumbar degenerative disc disease Vitamin D deficiency Multinodular thyroid Osteoporosis Surgical History (Updated 04/19/23 @ 16:45 by Madhav Rios MD) History of colonoscopy (~01/23/23) History of tooth extraction History of myomectomy History of appendectomy Family History Father Diabetes Hypertension CVD (cardiovascular disease) Mother Hypertension Maternal Aunt Cancer Daughter No problems noted. Son No problems noted. Sister No problems noted. Brother No problems noted. Social History Housing: House Alcohol intake: never Patient Tobacco Use Status: Never used Tobacco e-Cigarette/Vaping Use: Never Used Second Hand Smoke Exposure: Yes service: No Current occupational status: employed Cognitive needs: No Hearing needs: No Vision needs: No Questionnaire PHQ-9 Over the last 2 weeks, how often have you been bothered by any of the following problems? 1. Little interest or pleasure in doing things: not at all 2. Feeling down, depressed, or hopeless: not at all 3. Trouble falling or staying asleep, or sleeping too much: not at all 4. Feeling tired or having little energy: not at all 5. Poor appetite or overeating: not at all 6. Feeling bad about yourself - or that you are a failure or have let yourself or your family down: not at all 7. Trouble concentrating on things, such as reading the newspaper or watching television: not at all 8. Moving or speaking so slowly that other people could have noticed. Or the opposite - being so fidgety or restless that you have been moving around a lot more than usual: not at all 9. Thoughts that you would be better off or of hurting yourself in some way: not at all Total score: 0 Depression Screening Interpretation: Negative 70607 - PHQ-9 Billing: Yes Source: Developed by Drs. Vahid Becker, Ekaterina Zhu, Ken Zuleta and colleagues, with an educational richelle from [employer]. Thrive Questionnaire Date Thrive assessed: 04/19/23 I am a: Patient What is your living situation today?: I have a steady place to live Within the past 12 months, did the food you bought not last and you didn't have the money to get more?: Never true Within the past 12 months, did you worry whether your food would run out before you got money to buy more?: Never true Do you have trouble paying for medicines?: No Do you have trouble getting transportation to medical appointments?: No Do you have trouble paying your heating and electricity bill?: No Do you have trouble taking care of your child, family member or friend?: No Do you have trouble with day-to-day activities such as bathing, preparing meals, shopping, managing finances, etc.?: No Are you currently unemployed and looking for a job?: No Are you interested in more education?: No Please select the resources that you would like help with: None Currently or been in a relationship where the following occur: no concerns reported AUDIT C Alcohol Use Questionnaire (AUDIT-C) 1. How often do you have a drink containing alcohol?: Never 3. How often do you have six or more drinks on one occasion?: Never Total Score: 0 Score Reviewed/Action Taken: Yes SHAILA-7 AMB Questionnaire SHAILA-7 Date SHAILA - 7 assessed: 04/19/23 Feeling nervous, anxious, or on edge: 0 = Not at all Not being able to stop or control worryin = Not at all Worrying too much about different things: 0 = Not at all Trouble relaxin = Not at all Being so restless that it is hard to sit still: 0 = Not at all Becoming easily annoyed or irritable: 0 = Not at all Feeling afraid as if something awful might happen: 0 = Not at all Total SHAILA-7 score (0-4 normal; 5-9 mild; 10-14 moderate; 15-21 severe): 0 Source: Developed by Drs. Vahid Becker, Ekaterina Zhu, Ken Zuleta and colleagues, with an educational richelle from [employer]. Review of Systems Const Denies chills, Denies fatigue, Denies fever(s) and Denies headache(s) ENT Denies dysphagia, Denies dizziness, Denies otalgia, Denies headache(s), Denies neck pain, Denies odynophagia and Denies sore throat Card Denies chest pain, Denies palpitations and Denies dyspnea Resp Denies cough and Denies dyspnea GI Denies abdominal pain, Denies constipation, Denies dysphagia, Denies heartburn, Denies diarrhea, Denies nausea, Denies odynophagia and Denies vomiting Denies difficulty voiding, Denies nocturia and Denies dysuria Musc Denies neck pain Neuro Denies dizziness and Denies headache(s) Endo Denies fatigue and Denies palpitations Physical exam (Primary Care) Vital Signs: Last Vital Signs Pulse 95 04/19/23 16:02 BP 100/72 04/19/23 16:02 Pulse Ox 97 04/19/23 16:02 Oxygen Delivery Method Room Air 04/19/23 16:02 BMI result Body Mass Index 30.0 Tobacco/Smoking Status: Tobacco use Status Tobacco use date assessed 04/19/23 04/19/23 16:10 Patient Tobacco Use Status Never used Tobacco 04/19/23 16:04 e-Cigarette/Vaping Use Never Used 04/19/23 16:04 PHQ-9: PHQ-9 Score PHQ-9: Total score 0 04/19/23 16:10 Depression Screening Interpretation: Negative Thrive Assessment: Date of Thrive Assessment Date Thrive assessed 04/19/23 04/19/23 16:10 Currently or been in a relationship where the following occur: no concerns reported Const General: no acute distress and alert HENMT Ears: TM's normal bilaterally and EAC's normal Throat: Yes posterior oropharynx normal and Yes tonsils normal (no TP congestion) Neck Neck: Yes no lymphadenopathy and Yes supple Resp Auscultation: clear to auscultation bilaterally, no rales and no wheezes Cardio Rate: regular rate Rhythm: regular rhythm Heart sounds: no murmurs GI Palpation (GI): Soft to palpation, nontender and No hepatosplenomegaly present Skin General skin exam: no rashes or lesions noted Extrem General: Yes no clubbing, cyanosis or edema Results Reviewed Results Reviewed: Laboratory Tests 03/09/23 03/09/23 03/09/23 06:35 06:39 06:39 Sodium 141 Potassium 3.8 Creatinine 0.70 Estimated GFR > 60 Random Glucose 93 Calcium 9.3 Phosphorus 3.4 AST 16 ALT 11 N-Telopeptide X-linked 36 25-OH Vitamin D Total 48.7 TSH 1.36 Free T4 0.95 PTH Intact 85 H Calcium (PTH Intact) 9.0 Assessment and Plan Assessment & Plan (1) Osteoporosis: Code(s): M81.0 - Age-related osteoporosis without current pathological fracture Qualifiers: Osteoporosis type: unspecified Presence of current pathological fracture: unspecified Qualified Code(s): M81.0 - Age-related osteoporosis without current pathological fracture Plan: Was on Tymlos 80 mcg SQ daily from 09/16/2020 through February 2022 for a total of 18 months Was switched over to IV Reclast and she received her first infusion earlier this year Repeat BMD done a few months ago revealed (+) osteoporosis based on the lowest T-score value of -2.6 in the lumbar spine - BMD is mostly unchanged from previous; urine N-Telopeptide remains suppressed on her recent labs Continue daily Calcium and Vitamin D supplements Follow up with endocrinology as scheduled (2) Prakash's disease: Code(s): E06.3 - Autoimmune thyroiditis Plan: Patient is currently clinically euthyroid and has no symptoms of thyroid disease or insufficiency TFTs were normal on her recent labs done last month - ?will continue to monitor TFTs Follow-up with endocrinology as scheduled (3) Elevated parathyroid hormone: Code(s): R79.89 - Other specified abnormal findings of blood chemistry Plan: Her PTH level was elevated slightly on her labs done last month Will be getting this rechecked by Dr. Herman in a few months to differentiate between primary and secondary hyperparathyroidism (4) Vitamin D deficiency: Code(s): E55.9 - Vitamin D deficiency, unspecified Plan: Continue Vitamin D3 2000 units QD (5) Lumbar degenerative disc disease: Code(s): M51.36 - Other intervertebral disc degeneration, lumbar region Plan: Reinforced activity and weight-lifting restrictions Continue Ibuprofen 800 mg PRN States that her low back pain has not been bothering her as much lately Patient advised again to call if her low back pain gets worse -? may need further workups and/ or referral to physical therapy for further evaluation and management then (6) Insomnia: Code(s): G47.00 - Insomnia, unspecified Qualifiers: Insomnia type: unspecified Qualified Code(s): G47.00 - Insomnia, unspecified Plan: Sleep hygiene reinforced Has taken Trazodone in the past, which she states did not help Has been taking OTC Melatonin 3 mg Q HS lately, which is helping somewhat (7) Overweight (BMI 25.0-29.9): Code(s): E66.3 - Overweight Plan: Reinforced diet/exercise as tolerated/lose weight Plan To return in 6 months for her next annual physical examination Will have patient get her follow up labs done just BEFORE she comes in for her next annual PE Orders: Orders Complete Blood Count Auto Diff 6 Months E06.3 - Autoimmune thyroiditis, M81.0 - Age-related osteoporosis without current pathological fracture, Z00.00 - Encounter for general adult medical examination without abnormal findings Vitamin D 25-OH Total 6 Months E06.3 - Autoimmune thyroiditis, E55.9 - Vitamin D deficiency, unspecified, M81.0 - Age-related osteoporosis without current pathological fracture, Z00.00 - Encounter for general adult medical examination without abnormal findings Comprehensive Gould. Panel Fast 6 Months E06.3 - Autoimmune thyroiditis, M81.0 - Age-related osteoporosis without current pathological fracture, Z00.00 - Encounter for general adult medical examination without abnormal findings Lipid Panel 6 Months E06.3 - Autoimmune thyroiditis, E78.00 - Pure hype rcholesterolemia, unspecified, M81.0 - Age-related osteoporosis without current pathological fracture, Z00.00 - Encounter for general adult medical examination without abnormal findings TSH reflex Free T4 6 Months E06.3 - Autoimmune thyroiditis, E78.00 - Pure hypercholesterolemia, unspecified, M81.0 - Age-related osteoporosis without current pathological fracture, Z00.00 - Encounter for general adult medical examination without abnormal findings UA CC w/rflx Micro + Cult 6 Months E06.3 - Autoimmune thyroiditis, M81.0 - Age- related osteoporosis without current pathological fracture, R30.0 - Dysuria, Z00.00 - Encounter for general adult medical examination without abnormal findings Coding Level of Care Code Est Pt Level 4 (38399) Diagnoses Osteoporosis, unspecified osteoporosis type, unspecified pathological fracture presence M81.0 Osteoporosis type: unspecified Presence of current pathological fracture: unspecified Prakash's disease E06.3 Elevated parathyroid hormone R79.89 Vitamin D deficiency E55.9 Lumbar degenerative disc disease M51.36 Insomnia, unspecified type G47.00 Insomnia type: unspecified Overweight (BMI 25.0-29.9) E66.3
== END 2023-04-19 16:26 | disposition home or self-care (01) ==
PROVIDERS: Visit Provider Internal Medicine
DX: M81.0 Age-related osteoporosis without current pathological fracture (principal); E06.3 Autoimmune thyroiditis; R79.89 Other specified abnormal findings of blood chemistry; E55.9 Vitamin D deficiency, unspecified; M51.36 Other intervertebral disc degeneration, lumbar region; G47.00 Insomnia, unspecified; E66.3 Overweight
CPT/HCPCS: 99214

== ENCOUNTER 2023-06-23 06:44 | Outpatient (REF) | payer OTHER, SELFPAY ==
[2023-06-23 07:48] LABS: Vitamin D 25-OH Total 36.3 ng/mL (>30)
[2023-06-26 14:23] LABS: Calcium (PTHI) 9.4 mg/dL (8.6-10.4); PTHI 60 pg/mL (16-77)
== END 2023-06-23 06:45 | disposition home or self-care (01) ==
LOC: HO.LAB 06:44
PROVIDERS: PCP Internal Medicine; Visit Provider Internal Medicine Endocrinology, Diabetes & Metabolism
DX: E55.9 Vitamin D deficiency, unspecified (principal)
CPT/HCPCS: 36415; 82306; 83970

== ENCOUNTER 2023-07-27 08:10 | Outpatient (AMB) | payer OTHER, SELFPAY ==
--- NOTE | 2023-07-27 08:12 | MHC.OFFVIS ---
Intake Vital Signs 07/27/23 08:14 Height 5 ft 5.5 in Weight 181 lb 10.574 oz BMI 29.8 BP 92/56 L Blood Pressure Location Lt brachial Position Sitting Pulse 101 H Pulse Source Pulse Oximeter Intake Visit Reasons: f/u osteoporosis-CONFIRMED Intake Note: Patient present today for Osteoporosis follow up visit. 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 1) Osteoporosis: First diagnosed in August of 2018. Began treatment with Tymlos 09/23/2020. Completed 18 months of this in February 2022 and was transitioned to IV Reclast with her first dose 03/17/2022. She had a full workup for secondary causes of Osteoporosis which was all WNL.. Recently, PTH level was elevated No history of pathologic fracture or ONJ. Has 1-2 servings of dietary calcium per day in the form of milk and cheese. Currently not taking Calcium daily. Takes Vitamin D 4000 IU daily. Denies ever using PPI, anticoagulant, antiepileptic or glucocorticoid medication. Does weight bearing exercise 3 days per week for 60 minutes a time in the form of walking. Fracture history: Traumatic fracture of the L leg at age 7. Height loss: Denies. 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 , breastfed for 9 months in total. Menopause was age 39. She did not use HRT after. History of Kidney stones: Denies. Family history of Osteoporosis in her Mother. UTD on dental cleanings and sees dentist every 6 months. She did have dental extractions in April 2019, and treatment was delayed due to this. She had a dental implant started in Aug 2019, and did require bone grafting after. The second stage of this procedure was delayed due to COVID 19, and she has had some issues with graft acceptance/healing. DXA dated 09/16/2020: FINDINGS: AP SPINE L2-L4 (excluding L1): The data of L1-L4 has been changed to exclude the L1 vertebral body, because probable mild degenerative change at this level may cause overestimation of lumbar spine density. Current: BMD 0.802 g/cm2, Z-score -3.6, T-score -3.3, osteoporosis, 13.4% increase from baseline (<5% change is not significant). Baseline: BMD 0.707 g/cm2. LEFT FEMUR, NECK: Current: BMD 0.919 g/cm2, Z-score -0.5, T-score -0.9, normal. Prior measured was RIGHT (BMD 0.962 g/cm2, Z-score -0.2, T-score -0.5, normal). LEFT FEMUR, TOTAL: Current: BMD 0.923 g/cm2, Z-score -0.6, T-score -0.7, normal. Prior measured was RIGHT (BMD 0.954 g/cm2, Z-score -0.4, T-score -0.4, normal). 2) Nontoxic MNG: Patient with palpable goiter. Had thyroid US which revealed a multinodular goiter. Images were reviewed, and this represented a marcos gland with only pseudnodules, no true nodules. She was referred to Dr. Mark to discuss total thyroidectomy due to compressive symptoms. No surgery was recommended. She denies any compressive symptoms currently. Thyroid US: 03/19/19 FINDINGS: SIZE: Measurements of the thyroid lobes and nodules are given in sagittal, anteroposterior and transverse dimensions respectively. Right Thyroid Lobe: 5.9 x 2.0 x 2.0 cm, volume 12.7 mL. Parenchyma: The gland echotexture is heterogeneous. Thyroid vascularity is normal. Left Thyroid Lobe: 5.6 x 1.7 x 2.1 cm, volume 10.1 mL. Parenchyma: The gland echotexture is heterogeneous. Thyroid vascularity is normal. Isthmus: 0.7 cm in maximum AP dimension. RIGHT THYROID LOBE: There is 1 nodule seen. 1. Location: Superior. Size: 0.3 x 0.2 x 0.2 cm. Nodule characteristics: Hypoechoic and cystic, smooth margin, no calcification and no flow.. ISTHMUS: No nodules. LEFT THYROID LOBE: There is 1 nodule seen. 1. Location: Medial mid. Size: 2.3 x 0.7 x 1.7 cm. Nodule characteristics: Hypoechoic and heterogeneous, smooth margin, no calcification and positive intranodular flow. NODES: No lymphadenopathy is seen in the tissue surrounding the thyroid gland. Labs: Laboratory Tests 03/16/22 09/21/22 07:32 06:26 Sodium 141 Potassium 4.4 Creatinine 0.73 Estimated GFR > 60 25-OH Vitamin D To orin 37.0 47.3 TSH 1.68 Free T4 1.09 Nofx since last visit. No compressive sx from goiter . Recent labs show normalization of PTH and calcium [facility] Medical History (Updated 04/19/23 @ 16:51 by Madhav Rios MD) Insomnia Overweight (BMI 25.0-29.9) Prakash's disease Lumbar degenerative disc disease Vitamin D deficiency Multinodular thyroid Osteoporosis Surgical History (Updated 04/19/23 @ 16:45 by Madhav Rios MD) History of colonoscopy (~01/23/23) History of tooth extraction History of myomectomy History of appendectomy Family History Father Diabetes Hypertension CVD (cardiovascular disease) Mother Hypertension Maternal Aunt Cancer Daughter No problems noted. Son No problems noted. Sister No problems noted. Brother No problems noted. Social History Housing: House Alcohol intake: never Patient Tobacco Use Status: Never used Tobacco e-Cigarette/Vaping Use: Never Used Second Hand Smoke Exposure: Yes service: No Current occupational status: employed Cognitive needs: No Hearing needs: No Vision needs: No Physical Exam Const Other: Thyroid gland is normal size weighs about 15 g. No thyroid nodules palpated .There is no tenderness on palpation of the spine Assessment & Plan Assessment & Plan (1) Multinodular thyroid: Code(s): E04.2 - Nontoxic multinodular goiter Plan: Has pseudo nodules. Appears to be clinically biochemically euthyroid (2) Osteoporosis: Code(s): M81.0 - Age-related osteoporosis without current pathological fracture Qualifiers: Osteoporosis type: unspecified Presence of current pathological fracture: unspecified Qualified Code(s): M81.0 - Age-related osteoporosis without current pathological fracture Plan: This this is a 52-year-old female with a history of osteoporosis who received a full course of Tymlos proceeded by 1 dose of Reclast. Recent DEXA bone density showed stability and she has suppressed urine NTX. Secondary workup was negative . PTH is normalized on calcium and vitamin-D replacement Plan is to continue with calcium and vitamin-D. Reassess bone density 1 year's time l along with bone turnover markers to determine if and when pharmacologic therapy needs to be reinitiate Coding Level of Care Code Est Pt Level 3 (50643) Diagnoses Multinodular thyroid E04.2 Osteoporosis, unspecified osteoporosis type, unspecified pathological fracture presence M81.0 Osteoporosis type: unspecified Presence of current pathological fracture: unspecified
[2023-07-27 08:14] VITALS: BP 92/56; PULSE 101; BMI 29.8
== END 2023-07-27 09:00 | disposition home or self-care (01) ==
PROVIDERS: PCP Internal Medicine; Visit Provider Internal Medicine Endocrinology, Diabetes & Metabolism
DX: E04.2 Nontoxic multinodular goiter (principal); M81.0 Age-related osteoporosis without current pathological fracture
CPT/HCPCS: 99213

== ENCOUNTER → 2023-07-27 08:10 | Outpatient (BNVA) | payer OTHER, SELFPAY | PROVIDERS: PCP Internal Medicine; Visit Provider Internal Medicine Endocrinology, Diabetes & Metabolism | DX: E04.2 Nontoxic multinodular goiter (principal); M81.0 Age-related osteoporosis without current pathological fracture | CPT/HCPCS: 99212 ==

== ENCOUNTER 2023-10-09 06:25 | Outpatient (REF) | payer OTHER, SELFPAY ==
[2023-10-09 06:36] LABS: MANUAL DIFF FLAG NO
[2023-10-09 07:43] LABS: Appearance Urine Clear; Color Urine Yellow; Glucose Urine UA Negative (Negative); Leukocyte Esterase Urine Small (1+) (Negative); Nitrite Urine Negative (Negative); PH 5.5 (5.0-9.0); Specific Gravity - Urine 1.025 (1.005-1.025); Urine Blood Negative (Negative); Urine Ketones Negative (Negative); Urine Protein Negative (Neg-Trace)
[2023-10-09 07:44] LABS: UMIC TRIGGER UACC YES
[2023-10-09 07:44] LABS: Basophils Percent Auto 0.7 % (0-2); Eosinophils Absolute Auto 0.2 X10*3/uL (0.0-0.4); Hematocrit 36.7 % (37.0-47.0); Hemoglobin 11.7 g/dl (12.0-16.0); Imm Gran Abs Auto 0.02 X10*3/uL (0.00-0.03); Imm Gran Pct Auto 0.4 % (0.0-0.4); Lymphocytes Absolute Auto 1.3 X10*3/uL (1.2-4.9); Lymphocytes Percent Auto 24.3 % (20-40); Mean Corpuscular HGB Conc 31.9 g/dl (31.0-35.0); Mean Corpuscular Hemoglobin 28.7 pg (27.0-33.0); Mean Corpuscular Volume 90.2 fL (80.0-98.0); Mean Platelet Volume 9.2 fL (9.4-12.3); Monocytes Absolute Auto 0.5 X10*3/uL (0.1-1.2); Monocytes Percent Auto 8.2 % (2-11); Neutrophils Absolute Auto 3.4 x10*3/uL (2.0-8.3); Neutrophils Percent Auto 62.4 % (45-73); Platelet Count 349 X10*3/uL (160-400); Red Blood Count 4.07 X10*6/uL (4.20-5.50); Red Cell Distribution Width 13.8 % (11.0-16.0); White Blood Count 5.5 X10*3/uL (4.8-10.8)
[2023-10-09 08:05] LABS: Bacteria Urine Trace (None Seen); Hyaline Casts Urine 0-2 /LPF (0-2); RBC Urine 0-2 /HPF (0-2); UACC Culture Trigger YES
[2023-10-09 08:19] LABS: Alanine Aminotransferase 11 U/L (0-31); Albumin Level 3.9 g/dL (3.5-5.0); Alkaline Phosphatase 88 U/L (39-117); Anion Gap 12 (12-20); Aspartate Amino Transferase 17 U/L (5-31); Bilirubin Total 0.3 mg/dL (0.0-1.0); Blood Urea Nitrogen 15 mg/dL (9-16); Calcium 9.2 mg/dL (8.4-10.2); Carbon Dioxide 28 mmol/L (22-29); Chloride 105 mmol/L (96-108); Cholesterol 179 mg/dL (<200); Estimated Glomerular Filt Rate > 60; Glucose Fasting 99 mg/dL (60-99); HDL Cholesterol 48 mg/dL (>40); LDL Cholesterol Calculated 112 mg/dL (<100); Potassium 3.8 mmol/L (3.3-5.1); Sodium 141 mmol/L (135-145); Total Protein 7.6 g/dL (6.5-8.0); Triglycerides 97 mg/dL (<150)
[2023-10-09 08:35] LABS: TSH reflex Free T4 2.24 uIU/mL (0.32-4.0)
== END 2023-10-09 06:26 | disposition home or self-care (01) ==
LOC: HO.LAB 06:25
PROVIDERS: PCP Internal Medicine; Visit Provider Internal Medicine
DX: Z00.00 Encounter for general adult medical examination without abnormal findings (principal); E55.9 Vitamin D deficiency, unspecified; E06.3 Autoimmune thyroiditis; M81.0 Age-related osteoporosis without current pathological fracture; E78.00 Pure hypercholesterolemia, unspecified
CPT/HCPCS: 36415; 80053; 80061; 81001; 82306; 84443; 85025; 87086

== ENCOUNTER 2023-10-23 16:04 | Outpatient (AMB) | payer OTHER, SELFPAY ==
--- NOTE | 2023-10-23 16:15 | A.OFFPC_ITS ---
Vital Signs 10/23/23 16:18 Height 5 ft 5.5 in Weight 180 lb 2 oz BMI 29.5 BP 100/60 Blood Pressure Location Lt brachial Position Sitting Pulse 86 Pulse Source Pulse Oximeter Pulse Oximetry (%) 98 Oxygen Delivery Method Room Air Intake Visit Reasons: Annual Exam Intake Note: Patient is here today for a physical. Cogeneration Operator Required: No Marketing Content Specialist: Not Required per policy Accompanied by: Self / Same As Patient Allergies No Known Allergies [No Known Allergies*] Allergy (Verified 10/23/23 17:01) Medication List - Last Reconciled 10/23/23 by Madhav Rios MD albuterol sulfate 90 mcg/actuation 2 puffs inhalation Q6H PRN calcium carb,lactat-vitamin D3 200 mg-6.25 mcg (250 unit) (Calcet Petites) 2 tabs PO BID 30 days cholecalciferol (vitamin D3) 50 mcg PO DAILY 90 days ibuprofen 800 mg PO Q8H PRN 30 days Tobacco use date assessed: 10/23/23 Dental Screening Dental Screen Date: 10/23/23 Did you have a dental visit in the last 12 months?: Yes Did you have a dental problem in the last 6 months where you did not have access to dental care?: No Was dental information given to patient?: Patient has dentist HPI Annual Exam HPI Details Patient comes in today for her annual physical examination States that she feels okay She denies any headaches or dizziness Denies any chest pains, no SOB No nausea/vomiting, no abdominal pain No change in bowel habits noted She denies any acute urinary symptoms [facility] Medical History (Updated 04/19/23 @ 16:51 by Madhav Rios MD) Insomnia Overweight (BMI 25.0-29.9) Prakash's disease Lumbar degenerative disc disease Vitamin D deficiency Multinodular thyroid Osteoporosis Surgical History History of colonoscopy (~01/23/23) History of tooth extraction History of myomectomy History of appendectomy Family History (Updated 10/23/23 @ 16:21 by KWABENA Cardenas) Father Diabetes Hypertension CVD (cardiovascular disease) Mother Hypertension Mental health disorder Maternal Aunt Cancer Daughter Mental health disorder Son No problems noted. Sister No problems noted. Brother No problems noted. Social History Housing: House Alcohol intake: never Patient Tobacco Use Status: Never used Tobacco e-Cigarette/Vaping Use: Never Used Second Hand Smoke Exposure: Yes service: No Current occupational status: employed Cognitive needs: No Hearing needs: No Vision needs: No Questionnaire PHQ-9 Over the last 2 weeks, how often have you been bothered by any of the following problems? 1. Little interest or pleasure in doing things: not at all 2. Feeling down, depressed, or hopeless: not at all 3. Trouble falling or staying asleep, or sleeping too much: not at all 4. Feeling tired or having little energy: not at all 5. Poor appetite or overeating: not at all 6. Feeling bad about yourself - or that you are a failure or have let yourself or your family down: not at all 7. Trouble concentrating on things, such as reading the newspaper or watching television: not at all 8. Moving or speaking so slowly that other people could have noticed. Or the opposite - being so fidgety or restless that you have been moving around a lot more than usual: not at all 9. Thoughts that you would be better off or of hurting yourself in some way: not at all Total score: 0 Depression Screening Interpretation: Negative Depression Screening Done: Yes Source: Developed by Drs. Vahid Becker, Ekaterina Zhu, Ken Zuleta and colleagues, with an educational richelle from [employer]. Thrive Questionnaire Date Thrive assessed: 10/23/23 I am a: Patient What is your living situation today?: I have a steady place to live Within the past 12 months, did the food you bought not last and you didn't have the money to get more?: Never true Within the past 12 months, did you worry whether your food would run out before you got money to buy more?: Never true Do you have trouble paying for medicines?: No Do you have trouble getting transportation to medical appointments?: No Do you have trouble paying your heating and electricity bill?: No Do you have trouble taking care of your child, family member or friend?: No Do you have trouble with day-to-day activities such as bathing, preparing meals, shopping, managing finances, etc.?: No Are you currently unemployed and looking for a job?: No Are you interested in more education?: No Currently or been in a relationship where the following occur: no concerns reported THRIVE Score: 0 AUDIT C Alcohol Use Questionnaire (AUDIT-C) 1. How often do you have a drink containing alcohol?: Never Total Score: 0 SHAILA-7 AMB Questionnaire SHAILA-7 Date HSAILA - 7 assessed: 10/23/23 Feeling nervous, anxious, or on edge: 0 = Not at all Not being able to stop or control worryin = Not at all Worrying too much about different things: 0 = Not at all Trouble relaxin = Not at all Being so restless that it is hard to sit still: 0 = Not at all Becoming easily annoyed or irritable: 0 = Not at all Feeling afraid as if something awful might happen: 0 = Not at all Total SHAILA-7 score (0-4 normal; 5-9 mild; 10-14 moderate; 15-21 severe): 0 Source: Developed by Drs. Vahid Becker, kEaterina Zhu, Ken Zuleta and colleagues, with an educational richelle from [employer]. Physical exam (Primary Care) Vital Signs: Last Vital Signs Pulse 86 10/23/23 16:18 BP 100/60 10/23/23 16:18 Pulse Ox 98 10/23/23 16:18 Oxygen Delivery Method Room Air 10/23/23 16:18 BMI result Body Mass Index 29.5 Tobacco/Smoking Status: Tobacco use Status Tobacco use date assessed 10/23/23 10/23/23 16:22 Patient Tobacco Use Status Never used Tobacco 10/23/23 16:22 e-Cigarette/Vaping Use Never Used 10/23/23 16:22 PHQ-9: PHQ-9 Score PHQ-9: Total score 0 10/23/23 16:22 Depression Screening Interpretation: Negative Thrive Assessment: Date of Thrive Assessment Date Thrive assessed 10/23/23 10/23/23 16:22 Currently or been in a relationship where the following occur: no concerns reported Assessment and Plan Assessment & Plan (1) Annual physical exam: Code(s): Z00.00 - Encounter for general adult medical examination without abnormal findings (2) Osteoporosis: Code(s): M81.0 - Age-related osteoporosis without current pathological fracture Qualifiers: Osteoporosis type: unspecified Presence of current pathological fracture: unspecified Qualified Code(s): M81.0 - Age-related osteoporosis without current pathological fracture Plan: Was on Tymlos 80 mcg SQ daily from 09/16/2020 through February 2022 for a total of 18 months Was switched over to IV Reclast and she received her first infusion earlier this year Repeat BMD done a few months ago revealed (+) osteoporosis based on the lowest T-score value of -2.6 in the lumbar spine - BMD is mostly unchanged from previous; urine N-Telopeptide remains suppressed on her recent labs Continue daily Calcium and Vitamin D supplements Follow up with endocrinology as scheduled (3) Prakash's disease: Code(s): E06.3 - Autoimmune thyroiditis Plan: Patient is currently clinically euthyroid and has no symptoms of thyroid disease or insufficiency TFTs were normal on her recent labs done last month - ?will continue to monitor TFTs Follow-up with endocrinology as scheduled (4) Elevated parathyroid hormone: Code(s): R79.89 - Other specified abnormal findings of blood chemistry Plan: Her PTH level was elevated slightly on her labs done last month Will be getting this rechecked by Dr. Herman in a few months to differentiate between primary and secondary hyperparathyroidism (5) Vitamin D deficiency: Code(s): E55.9 - Vitamin D deficiency, unspecified Plan: Continue Vitamin D3 2000 units QD (6) Lumbar degenerative disc disease: Code(s): M51.36 - Other intervertebral disc degeneration, lumbar region Plan: Reinforced activity and weight-lifting restrictions Continue Ibuprofen 800 mg PRN States that her low back pain has not been bothering her as much lately Patient advised again to call if her low back pain gets worse -? may need further workups and/ or referral to physical therapy for further evaluation and management then (7) Insomnia: Code(s): G47.00 - Insomnia, unspecified Qualifiers: Insomnia type: unspecified Qualified Code(s): G47.00 - Insomnia, unspecified Plan: Sleep hygiene reinforced Has taken Trazodone in the past, which she states did not help Has been taking OTC Melatonin 3 mg Q HS lately, which is helping somewhat (8) Overweight (BMI 25.0-29.9): Code(s): E66.3 - Overweight Plan: Reinforced diet/exercise as tolerated/lose weight Plan To return in 1 year for his next annual physical examination Orders: Orders Complete Blood Count Auto Diff 360 Days D64.9 - Anemia, unspecified, Z00.00 - Encounter for general adult medical examination without abnormal findings Lipid Panel 360 Days E78.00 - Pure hypercholesterolemia, unspecified, Z00.00 - Encounter for general adult medical examination without abnormal findings TSH reflex Free T4 360 Days E78.00 - Pure hypercholesterolemia, unspecified, Z00.00 - Encounter for general adult medical examination without abnormal findings Comprehensive [place]. Panel Fast 360 Days E78.00 - Pure hypercholesterolemia, unspecified, Z00.00 - Encounter for general adult medical examination without abnormal findings UA CC w/rflx Micro + Cult 360 Days R30.0 - Dysuria, Z00.00 - Encounter for general adult medical examination without abnormal findings Vitamin D 25-OH Total 360 Days E55.9 - Vitamin D deficiency, unspecified, Z00.00 - Encounter for general adult medical examination without abnormal findings Medications: Refilled cholecalciferol (vitamin D3) 50 mcg PO DAILY 90 days 90 caps 3RF E55.9 - Vitamin D deficiency, unspecified ibuprofen 800 mg PO Q8H 30 days PRN 90 tabs 3RF pain M51.36 - Other intervertebral disc degeneration, lumbar region Coding Level of Care Code Est Pt Prev Care 40-64y(13471) Diagnoses Annual physical exam Z00.00 Osteoporosis, unspecified osteoporosis type, unspecified pathological fracture presence M81.0 Osteoporosis type: unspecified Presence of current pathological fracture: unspecified Prakash's disease E06.3 Elevated parathyroid hormone R79.89 Vitamin D deficiency E55.9 Lumbar degenerative disc disease M51.36 Insomnia, unspecified type G47.00 Insomnia type: unspecified Overweight (BMI 25.0-29.9) E66.3
--- NOTE | 2023-10-23 16:15 | MHC.PC.OV ---
Vital Signs 10/23/23 16:18 Height 5 ft 5.5 in Weight 180 lb 2 oz BMI 29.5 BP 100/60 Blood Pressure Location Lt brachial Position Sitting Pulse 86 Pulse Source Pulse Oximeter Pulse Oximetry (%) 98 Oxygen Delivery Method Room Air Intake Visit Reasons: Annual Exam Intake Note: Patient is here today for a physical. Clinical Information Systems Director Required: No Power Wheelchair Mechanic: Not Required per policy Accompanied by: Self / Same As Patient Allergies No Known Allergies [No Known Allergies*] Allergy (Verified 10/23/24 17:09) Medication List - Last Reconciled 10/23/23 by Madhav Rios MD albuterol sulfate 90 mcg/actuation 2 puffs inhalation Q6H PRN calcium carb,lactat-vitamin D3 200 mg-6.25 mcg (250 unit) (Calcet Petites) 2 tabs PO BID 30 days cholecalciferol (vitamin D3) 50 mcg PO DAILY 90 days ibuprofen 800 mg PO Q8H PRN 30 days Tobacco use date assessed: 10/23/23 Dental Screening Dental Screen Date: 10/23/23 Did you have a dental visit in the last 12 months?: Yes Did you have a dental problem in the last 6 months where you did not have access to dental care?: No Was dental information given to patient?: Patient has dentist HPI Annual Exam HPI Details Patient comes in today for her annual physical examination States that she feels okay She denies any headaches or dizziness Denies any chest pains, no SOB No nausea/vomiting, no abdominal pain No change in bowel habits noted She denies any acute urinary symptoms Needs a couple of her Rx refilled She had her follow-up labs done a couple of weeks ago - to discuss her results She is up-to-date with all of her cancer screenings [facility] Medical History Insomnia Overweight (BMI 25.0-29.9) Prakash's disease Lumbar degenerative disc disease Vitamin D deficiency Multinodular thyroid Osteoporosis Surgical History History of colonoscopy (~01/23/23) History of tooth extraction History of myomectomy History of appendectomy Family History Father Diabetes Hypertension CVD (cardiovascular disease) Mother Hypertension Mental health disorder Maternal Aunt Cancer Daughter Mental health disorder Son No problems noted. Sister No problems noted. Brother No problems noted. Social History Housing: House Alcohol intake: never Patient Tobacco Use Status: Never used Tobacco e-Cigarette/Vaping Use: Never Used Second Hand Smoke Exposure: Yes service: No Current occupational status: employed Cognitive needs: No Hearing needs: No Vision needs: No Questionnaire PHQ-9 Over the last 2 weeks, how often have you been bothered by any of the following problems? 1. Little interest or pleasure in doing things: not at all 2. Feeling down, depressed, or hopeless: not at all 3. Trouble falling or staying asleep, or sleeping too much: not at all 4. Feeling tired or having little energy: not at all 5. Poor appetite or overeating: not at all 6. Feeling bad about yourself - or that you are a failure or have let yourself or your family down: not at all 7. Trouble concentrating on things, such as reading the newspaper or watching television: not at all 8. Moving or speaking so slowly that other people could have noticed. Or the opposite - being so fidgety or restless that you have been moving around a lot more than usual: not at all 9. Thoughts that you would be better off or of hurting yourself in some way: not at all Total score: 0 Depression Screening Interpretation: Negative Depression Screening Done: Yes [id number] - PHQ-9 Billing: Yes Source: Developed by Drs. Vahid Becker, Ekaterina Zhu, Ken Zuleta and colleagues, with an educational richelle from [employer]. Thrive Questionnaire Date Thrive assessed: 10/23/23 I am a: Patient What is your living situation today?: I have a steady place to live Within the past 12 months, did the food you bought not last and you didn't have the money to get more?: Never true Within the past 12 months, did you worry whether your food would run out before you got money to buy more?: Never true Do you have trouble paying for medicines?: No Do you have trouble getting transportation to medical appointments?: No Do you have trouble paying your heating and electricity bill?: No Do you have trouble taking care of your child, family member or friend?: No Do you have trouble with day-to-day activities such as bathing, preparing meals, shopping, managing finances, etc.?: No Are you currently unemployed and looking for a job?: No Are you interested in more education?: No Currently or been in a relationship where the following occur: no concerns reported THRIVE Score: 0 AUDIT C Alcohol Use Questionnaire (AUDIT-C) 1. How often do you have a drink containing alcohol?: Never Total Score: 0 Score Reviewed/Action Taken: Yes SHAILA-7 AMB Questionnaire SHAILA-7 Date SHAILA - 7 assessed: 10/23/23 Feeling nervous, anxious, or on edge: 0 = Not at all Not being able to stop or control worryin = Not at all Worrying too much about different things: 0 = Not at all Trouble relaxin = Not at all Being so restless that it is hard to sit still: 0 = Not at all Becoming easily annoyed or irritable: 0 = Not at all Feeling afraid as if something awful might happen: 0 = Not at all Total SHAILA-7 score (0-4 normal; 5-9 mild; 10-14 moderate; 15-21 severe): 0 Source: Developed by Drs. Vahid Becker, Ekaterina Zhu, Ken Zuleta and colleagues, with an educational richelle from [employer]. Review of Systems Const Denies chills, Denies fatigue, Denies fever(s), Denies headache(s) and Denies malaise Eyes Denies blurry vision, Denies change in vision, Denies irritation and Denies itchy eyes ENT Denies dysphagia, Denies dizziness, Denies otalgia, Denies headache(s), Denies nasal congestion, Denies neck pain, Denies odynophagia, Denies sinus pain and Denies sore throat Card Denies chest pain, Denies rapid heart rate, Denies irregular heart rhythm, Denies palpitations and Denies dyspnea Resp Denies chest congestion, Denies cough, Denies dyspnea and Denies wheezing GI Denies abdominal pain, Denies bloating, Denies constipation, Denies dysphagia, Denies heartburn, Denies diarrhea, Denies nausea, Denies odynophagia and Denies vomiting Denies hematuria, Denies urinary frequency, Denies dysuria, Denies urinary incontinence and Denies urinary urgency Musc Denies back pain, Denies arthralgias, Denies joint swelling, Denies muscle weakness and Denies neck pain Skin/Breast Denies breast pain, Denies breast mass, Denies change in pigmentation, Denies lesions, Denies rash and Denies unusual bruising Neuro Denies dizziness, Denies headache(s) and Denies paresthesias Psych Denies anxiety and Denies depression Endo Denies fatigue and Denies palpitations Rashid/Lymph Denies easy bruising Aller/Immun Denies itchy eyes and Denies wheezing Physical exam (Primary Care) Vital Signs: Last Vital Signs Pulse 86 10/23/23 16:18 BP 100/60 10/23/23 16:18 Pulse Ox 98 10/23/23 16:18 Oxygen Delivery Method Room Air 10/23/23 16:18 BMI result Body Mass Index 29.5 Tobacco/Smoking Status: Tobacco use Status Tobacco use date assessed 10/23/23 10/23/23 16:22 Patient Tobacco Use Status Never used Tobacco 10/23/23 16:22 e-Cigarette/Vaping Use Never Used 10/23/23 16:22 PHQ-9: PHQ-9 Score PHQ-9: Total score 0 10/24/24 03:05 Depression Screening Interpretation: Negative Thrive Assessment: Date of Thrive Assessment Date Thrive assessed 10/23/23 10/23/23 16:22 Currently or been in a relationship where the following occur: no concerns reported Const General: no acute distress, alert and awake Orientation/consciousness: patient oriented x3 [facility] Head: Yes normocephalic and Yes atraumatic Ears: external ears normal, TM's normal bilaterally and EAC's normal General nose exam: No nasal discharge present Face and sinus: Yes normal facial exam and Yes sinuses nontender Teeth and gingiva: dentition normal Throat: Yes posterior oropharynx normal and Yes tonsils normal (no TP congestion) Eyes Eyelids: Yes eyelids normal Conjunctivae: conjunctivae normal Pupils: Equal, round and reactive pupils present EOM: EOMs intact bilaterally Neck Neck: Yes supple and No lymphadenopathy Thyroid: diffusely enlarged (mild) and nontender Resp Auscultation: clear to auscultation bilaterally, no rales and no wheezes Cardio Rate: regular rate Rhythm: regular rhythm Heart sounds: no murmurs GI Palpation (GI): Soft to palpation, nontender and No hepatosplenomegaly present Auscultation: normal bowel sounds General: Yes no CVA tenderness Back/Spine/Pelvis Back: no CVA tenderness Thoracic/Lumbar Spine: thoracic and lumbar spine normal to inspection Skin Lesions: no lesions Rashes: no rashes Neuro General: patient oriented x3, moves all extremities, no focal motor deficits and CN's II-XI intact bilaterally Cranial nerves: Yes Equal, round and reactive pupils present Cognition (Neuro): normal cognition Gait exam (Neuro): Normal gait present Extrem General: Yes no clubbing, cyanosis or edema Results Reviewed Results Reviewed: Laboratory Tests 10/09/23 10/09/23 06:25 06:30 WBC 5.5 Hgb 11.7 L Hct 36.7 L Plt Count 349 Sodium 141 Potassium 3.8 Creatinine 0.71 Estimated GFR > 60 Fasting Glucose 99 Calcium 9.2 AST 17 ALT 11 Triglycerides 97 Cholesterol 179 LDL Cholesterol, Calc 112 H HDL Cholesterol 48 25-OH Vitamin D Total 30.0 L TSH 2.24 Ur Specific [place] 1.025 Urine Protein Negative Urine Glucose (UA) Negative Urine Blood Negative Urine Nitrite Negative Ur Leukocyte Esterase Small (1+) H Coding Level of Care Code Est Pt Prev Care 40-64y(88459) Diagnoses Annual physical exam Z00.00 Osteoporosis, unspecified osteoporosis type, unspecified pathological fracture presence M81.0 Osteoporosis type: unspecified Presence of current pathological fracture: unspecified Prakash's disease E06.3 Elevated parathyroid hormone R79.89 Vitamin D deficiency E55.9 Lumbar degenerative disc disease M51.36 Insomnia, unspecified type G47.00 Insomnia type: unspecified Overweight (BMI 25.0-29.9) E66.3
[2023-10-23 16:18] VITALS: BP 100/60; PULSE 86; O2SAT 98; BMI 29.5
== END 2023-10-23 17:05 | disposition home or self-care (01) ==
PROVIDERS: PCP Internal Medicine; Visit Provider Internal Medicine
DX: Z00.00 Encounter for general adult medical examination without abnormal findings (principal); M81.0 Age-related osteoporosis without current pathological fracture; E06.3 Autoimmune thyroiditis; R79.89 Other specified abnormal findings of blood chemistry; E55.9 Vitamin D deficiency, unspecified; M51.36 Other intervertebral disc degeneration, lumbar region; G47.00 Insomnia, unspecified; E66.3 Overweight
CPT/HCPCS: 99499

== ENCOUNTER → 2024-01-04 09:39 | Outpatient (BNVA) | payer OTHER, SELFPAY | PROVIDERS: PCP Internal Medicine; Visit Provider Registered Nurse | DX: M25.562 Pain in left knee (principal); M25.551 Pain in right hip; M25.512 Pain in left shoulder; M81.0 Age-related osteoporosis without current pathological fracture; E28.319 Asymptomatic premature menopause; Z91.81 History of falling | CPT/HCPCS: 73030; 73502; 73562; 99203 ==

== ENCOUNTER → 2024-01-08 08:00 | Outpatient (BNVA) | payer OTHER, SELFPAY | PROVIDERS: PCP Internal Medicine; Visit Provider Registered Nurse | DX: S73.101A Unspecified sprain of right hip, initial encounter (principal); S46.912A Strain of unspecified muscle, fascia and tendon at shoulder and upper arm level, left arm, initial encounter; S83.92XA Sprain of unspecified site of left knee, initial encounter; W18.30XA Fall on same level, unspecified, initial encounter | CPT/HCPCS: 99213 ==

== ENCOUNTER → 2024-01-17 07:58 | Outpatient (BNVA) | payer OTHER, SELFPAY | PROVIDERS: PCP Internal Medicine; Visit Provider Registered Nurse | DX: M25.512 Pain in left shoulder (principal); M25.551 Pain in right hip; M25.562 Pain in left knee; Z91.81 History of falling | CPT/HCPCS: 99213 ==

== ENCOUNTER 2024-04-15 15:46 | Outpatient (REF) | payer OTHER, SELFPAY ==
--- NOTE | ~2024-04-15 | MM_ITS ---
EXAMINATION: MM SCREENING DIGITAL BREAST TOMOSYNTHESIS, BILATERAL CLINICAL INFORMATION: Screening. Asymptomatic. COMPARISON: Mammography: Comparison is made with available priors TECHNIQUE: Digital breast mammography with tomosynthesis is performed in both the craniocaudal and mediolateral oblique views along with computer-aided detection (CAD). FINDINGS: There are scattered areas of fibroglandular density (ACR BI-RADS breast composition Category b). Right: There are no significant masses, abnormal calcifications, or other abnormalities. Left: Circumscribed oval mass upper inner breast middle depth. No suspicious calcifications or other abnormal findings. MM/MM tomosynthesis screening BI IMPRESSION: Additional imaging is recommended ASSESSMENT: BI-RADS BI-RADS 0 - Incomplete: Needs additional Imaging. RECOMMENDATION: Circumscribed oval mass upper inner breast middle depth. Ultrasound recommended at this time. Radiology department staff will contact the patient for additional imaging. Additional Imaging required This examination should not preclude the clinical evaluation of a suspicious palpable abnormality. This patient's information was entered into a reminder system with a target due date for their next mammogram. Electronically signed by: Kamla House DO 04/26/2024 10:54 AM EDT
== END 2024-04-15 15:47 | disposition home or self-care (01) ==
LOC: HO.MAMMO 15:46
PROVIDERS: PCP Internal Medicine; Visit Provider Internal Medicine
DX: Z12.31 Encounter for screening mammogram for malignant neoplasm of breast (principal)
CPT/HCPCS: 77063; 77067

== ENCOUNTER → 2024-04-15 16:00 | Outpatient (BNV) | payer OTHER, SELFPAY | PROVIDERS: PCP Internal Medicine; Visit Provider Internal Medicine | DX: Z12.31 Encounter for screening mammogram for malignant neoplasm of breast (principal) | CPT/HCPCS: 77063; 77067 ==

== ENCOUNTER 2024-05-15 08:39 | Outpatient (REF) | payer OTHER, SELFPAY ==
--- NOTE | ~2024-05-15 | US_ITS ---
EXAMINATION: US DIAGNOSTIC ULTRASOUND BREAST, LEFT CLINICAL INFORMATION: Diagnostic ultrasound left; Evaluate oval circumscribed mass left breast upper inner quadrant, middle depth, seen on screening exam dated 04/15/2024. COMPARISON: Screening mammography 04/15/2024. Available priors. TECHNIQUE: Ultrasound of the left breast is performed with real-time burdick scale imaging and color Doppler. Attention was given to the upper inner quadrant, in the region of circumscribed density on mammography. FINDINGS: Within the left breast, 10:00 axis, 4 cm from the nipple, there is a small simple cyst, oval in shape, measuring 4 x 3 x 5 mm. This corresponds well with the finding on mammography and is benign. There are no suspicious findings. US/US breast LT limited mamm only IMPRESSION: Finding and mammography correlates with a simple cyst measuring 4 x 3 x 5 mm on ultrasound within the left breast 10:00 axis, 4 cm from the nipple. There are no findings suspicious for malignancy. Recommend the patient resume routine annual screening. ASSESSMENT: BI-RADS 2: Benign RECOMMENDATION: Routine annual mammography screening. This patient's information was entered into a reminder system with a target due date for their next mammogram. Electronically signed by: Ford Mcmahon MD 05/15/2024 12:38 PM EDT
== END 2024-05-15 08:40 | disposition home or self-care (01) ==
LOC: HO.MAMMO 08:39
PROVIDERS: PCP Internal Medicine; Visit Provider Internal Medicine
DX: N63.22 Unspecified lump in the left breast, upper inner quadrant (principal)
CPT/HCPCS: 76642

== ENCOUNTER → 2024-05-15 09:00 | Outpatient (BNV) | payer OTHER, SELFPAY | PROVIDERS: PCP Internal Medicine; Visit Provider Radiology Diagnostic Radiology | DX: N63.22 Unspecified lump in the left breast, upper inner quadrant (principal) | CPT/HCPCS: 76642 ==

== ENCOUNTER 2024-06-03 15:28 | Outpatient (AMB) | payer OTHER, SELFPAY ==
--- NOTE | 2024-06-03 15:30 | MHC.OFFVIS ---
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 No complaints. Last Pap/HPV was negative in 04/21 Last Mammogram was BI-RADS 2 in 04/23 Last Colonoscopy was negative in 01/20, the recommendation was to repeat in 10 years [facility] Medical History Insomnia Overweight (BMI 25.0-29.9) Prakash's disease Lumbar degenerative disc disease Vitamin D deficiency Multinodular thyroid Osteoporosis Surgical History History of colonoscopy (~01/23/23) History of tooth extraction History of myomectomy History of appendectomy Family History Father Diabetes Hypertension CVD (cardiovascular disease) Mother Hypertension Mental health disorder Maternal Aunt Cancer Daughter Mental health disorder Son No problems noted. Sister No problems noted. Brother No problems noted. Social History Housing: House Alcohol intake: never Patient Tobacco Use Status: Never used Tobacco e-Cigarette/Vaping Use: Never Used Second Hand Smoke Exposure: Yes service: No Current occupational status: employed Cognitive needs: No Hearing needs: No Vision needs: No Female Reproductive History Menstrual control method: none Age of menopause: 39 Total pregnancies: 2 Full term: 2 Number of Living Children: 2 Date of last pap smear: 03/31/22 History of abnormal pap smear: No History of STI: No Date of Mammogram: 04/15/24 History of abnormal mammogram: Yes Date of last Bone Density Screenin10/14/22 Review of Systems Const All systems reviewed & are unremarkable except as noted in HPI and below Card Reports as per HPI Resp Reports as per HPI GI Reports as per HPI and Reports no additional complaints Reports as per HPI Physical Exam Const General: cooperative, healthy appearing and comfortable Chest Chest palpation & inspection: normal inspection of the chest and normal palpation of entire chest wall Breast/axilla inspection: normal inspection of the breasts and normal inspection of the axillae Breast/axilla palpation: normal palpation of the breasts, normal palpation of the axillae and no axillary lymphadenopathy Resp Effort & Inspection: normal respiratory effort Auscultation: clear to auscultation bilaterally Percussion: percussion normal Cardio Palpation: normal PMI Rate: regular rate Rhythm: regular rhythm Heart sounds: no murmurs and no rubs Peripheral pulses: Peripheral pulses 2+ throughout GI Inspection: Yes normal to inspection Palpation (GI): Soft to palpation, nontender, no guarding, not rigid and No hepatosplenomegaly present Percussion: Yes normal to percussion Auscultation: normal bowel sounds Rectal Exam - Female: deferred General: Yes bladder normal to palpation External Female Exam: No lesion Speculum Exam - Vagina: normal appearance of the vagina, normal palpation, normal vaginal discharge and not erythematous Speculum Exam - Cervix: normal appearance of the cervix and normal palpation Bimanual exam- vagina & uterus: normal bimanual exam, normal palpation, uterine size normal, bladder normal to palpation, consistency normal and normal palpation Bimanual Exam- Adnexa, other: normal adnexae, no masses and no tenderness Assessment & Plan Assessment & Plan (1) Well woman exam: Code(s): Z01.419 - Encounter for gynecological examination (general) (routine) without abnormal findings Category: Medical Plan: Co testing not indicated this year. Counseled the patient about the recommended dietary allowance of 1200 mg of Calcium & 600 IU of vitamin D. Instructions given the patient to schedule next screening Mammogram in 04/24. The patient was instructed to perform monthly self-breast exams and schedule annual exam in a year. All questions answered and the patient verbalized understanding. Coding Level of Care Code Est Pt Prev Care 40-64y(11966) Diagnoses Well woman exam Z01.419
[2024-06-03 15:31] VITALS: BP 110/72
== END 2024-06-03 15:46 | disposition home or self-care (01) ==
LOC: HO.HWS 15:29
PROVIDERS: PCP Internal Medicine; Visit Provider Obstetrics & Gynecology
DX: Z01.419 Encounter for gynecological examination (general) (routine) without abnormal findings (principal)
CPT/HCPCS: 99396

== ENCOUNTER → 2024-06-03 15:28 | Outpatient (BNVA) | payer OTHER, SELFPAY | PROVIDERS: PCP Internal Medicine; Visit Provider Obstetrics & Gynecology | DX: Z01.419 Encounter for gynecological examination (general) (routine) without abnormal findings (principal) | CPT/HCPCS: 99396 ==

== ENCOUNTER 2024-07-29 07:51 | Outpatient (AMB) | payer OTHER, SELFPAY ==
--- NOTE | 2024-07-29 07:53 | A.OFFVIS_ITS ---
Vital Signs 07/29/24 07:57 Height 5 ft 5.5 in Weight 186 lb 8.177 oz BMI 30.6 BP 98/72 Blood Pressure Location Lt brachial Position Sitting Pulse 102 H Pulse Source Pulse Oximeter Intake Visit Reasons: f/u osteoporosis Intake Note: Patient present today for Osteoporosis follow up. Quality Assurance Nurse Required: No Accompanied by: Self / Same As Patient Allergies No Known Allergies [No Known Allergies*] Allergy (Verified 07/29/24 07:58) Medication List - Last Reconciled 07/29/24 by Vahid Herman MD albuterol sulfate 90 mcg/actuation 2 puffs inhalation Q6H PRN calcium carb,lactat-vitamin D3 200 mg-6.25 mcg (250 unit) (Calcet Petites) 2 tabs PO BID 30 days cholecalciferol (vitamin D3) 50 mcg PO DAILY 90 days ibuprofen 800 mg PO Q8H PRN 30 days HPI Comments Details: 53 YO Female with PMHx premature ovarian failure is seen in F/U for Osteoporosis 1) Osteoporosis: First diagnosed in August of 2018. Began treatment with Tymlos 09/23/2020. Completed 18 months of this in February 2022 and was transitioned to IV Reclast with her first dose 03/17/2022. She had a full workup for secondary causes of Osteoporosis which was all WNL.. Recently, PTH level was elevated No history of pathologic fracture or ONJ. Has 1-2 servings of dietary calcium per day in the form of milk and cheese. Currently not taking Calcium daily. Takes Vitamin D 4000 IU daily. Denies ever using PPI, anticoagulant, antiepileptic or glucocorticoid medication. Does weight bearing exercise 3 days per week for 60 minutes a time in the form of walking. Fracture history: Traumatic fracture of the L leg at age 7. Height loss: Denies. [employer] history: Menarche was age 14, menses were always irregular. , breastfed for 9 months in total. Menopause was age 39. She did not use HRT after. History of Kidney stones: Denies. Family history of Osteoporosis in her Mother. UTD on dental cleanings and sees dentist every 6 months. She did have dental extractions in April 2019, and treatment was delayed due to this. She had a dental implant started in Aug 2019, and did require bone grafting after. The second stage of this procedure was delayed due to COVID 19, and she has had some issues with graft acceptance/healing. DXA dated 09/16/2020: FINDINGS: AP SPINE L2-L4 (excluding L1): The data of L1-L4 has been changed to exclude the L1 vertebral body, because probable mild degenerative change at this level may cause overestimation of lumbar spine density. Current: BMD 0.802 g/cm2, Z-score -3.6, T-score -3.3, osteoporosis, 13.4% increase from baseline (<5% change is not significant). Baseline: BMD 0.707 g/cm2. LEFT FEMUR, NECK: Current: BMD 0.919 g/cm2, Z-score -0.5, T-score -0.9, normal. Prior measured was RIGHT (BMD 0.962 g/cm2, Z-score -0.2, T-score -0.5, normal). LEFT FEMUR, TOTAL: Current: BMD 0.923 g/cm2, Z-score -0.6, T-score -0.7, normal. Prior measured was RIGHT (BMD 0.954 g/cm2, Z-score -0.4, T-score -0.4, normal). 2) Nontoxic MNG: Patient with palpable goiter. Had thyroid US which revealed a multinodular goiter. Images were reviewed, and this represented a marcos gland with only pseudnodules, no true nodules. She was referred to Dr. Mark to discuss total thyroidectomy due to compressive symptoms. No surgery was recommended. She denies any compressive symptoms currently. Thyroid US: 03/19/19 FINDINGS: SIZE: Measurements of the thyroid lobes and nodules are given in sagittal, anteroposterior and transverse dimensions respectively. Right Thyroid Lobe: 5.9 x 2.0 x 2.0 cm, volume 12.7 mL. Parenchyma: The gland echotexture is heterogeneous. Thyroid vascularity is normal. Left Thyroid Lobe: 5.6 x 1.7 x 2.1 cm, volume 10.1 mL. Parenchyma: The gland echotexture is heterogeneous. Thyroid vascularity is normal. Isthmus: 0.7 cm in maximum AP dimension. RIGHT THYROID LOBE: There is 1 nodule seen. 1. Location: Superior. Size: 0.3 x 0.2 x 0.2 cm. Nodule characteristics: Hypoechoic and cystic, smooth margin, no calcification and no flow.. ISTHMUS: No nodules. LEFT THYROID LOBE: There is 1 nodule seen. 1. Location: Medial mid. Size: 2.3 x 0.7 x 1.7 cm. Nodule characteristics: Hypoechoic and heterogeneous, smooth margin, no calcification and positive intranodular flow. NODES: No lymphadenopathy is seen in the tissue surrounding the thyroid gland. Labs: Laboratory Tests 03/16/22 09/21/22 07:32 06:26 Sodium 141 Potassium 4.4 Creatinine 0.73 Estimated GFR > 60 25-OH Vitamin D Total 37.0 47.3 TSH 1.68 Free T4 1.09 on calcium and vitamin-D. No fracture since last visit [facility] Medical History Insomnia Overweight (BMI 25.0-29.9) Prakash's disease Lumbar degenerative disc disease Vitamin D deficiency Multinodular thyroid Osteoporosis Surgical History History of colonoscopy (~01/23/23) History of tooth extraction History of myomectomy History of appendectomy Family History Father Diabetes Hypertension CVD (cardiovascular disease) Mother Hypertension Mental health disorder Maternal Aunt Cancer Daughter Mental health disorder Son No problems noted. Sister No problems noted. Brother No problems noted. Social History Housing: House Alcohol intake: never Patient Tobacco Use Status: Never used Tobacco e-Cigarette/Vaping Use: Never Used Second Hand Smoke Exposure: Yes service: No Current occupational status: employed Cognitive needs: No Hearing needs: No Vision needs: No Physical Exam Vital Signs: Last Vital Signs Pulse 102 H 07/29/24 07:57 BP 98/72 07/29/24 07:57 BMI result Body Mass Index 30.6 Assessment & Plan Assessment & Plan (1) Osteoporosis: Code(s): M81.0 - Age-related osteoporosis without current pathological fracture Category: Medical Qualifiers: Osteoporosis type: unspecified Presence of current pathological fracture: unspecified Qualified Code(s): M81.0 - Age-related osteoporosis without current pathological fracture Plan: This this is a 52-year-old female with a history of osteoporosis who received a full course of Tymlos proceeded by 1 dose of Reclast. Recent DEXA bone density showed stability Secondary workup was negative . Plan is to continue with calcium and vitamin-D. Reassess bone density in 6 mos time l along with bone turnover markers to determine if and when pharmacologic therapy needs to be reinitiate. I also encouraged the use of consistently taking the calcium and vitamin-D and also weight-bearing exercise Orders: Orders Collagen Cross-linked,24U Today M81.0 - Age-related osteoporosis without current pathological fracture XR DEXA axial skeleton 6 Months M81.0 - Age-related osteoporosis without current pathological fracture Coding Level of Care Code Est Pt Level 3 (63696) Diagnoses Osteoporosis, unspecified osteoporosis type, unspecified pathological fracture presence M81.0 Osteoporosis type: unspecified Presence of current pathological fracture: unspecified
[2024-07-29 07:57] VITALS: BP 98/72; PULSE 102; BMI 30.6
== END 2024-07-29 08:06 | disposition home or self-care (01) ==
PROVIDERS: PCP Internal Medicine; Visit Provider Internal Medicine Endocrinology, Diabetes & Metabolism
DX: M81.0 Age-related osteoporosis without current pathological fracture (principal)
CPT/HCPCS: 99213

== ENCOUNTER → 2024-07-29 07:51 | Outpatient (BNVA) | payer OTHER, SELFPAY | PROVIDERS: PCP Internal Medicine; Visit Provider Internal Medicine Endocrinology, Diabetes & Metabolism | DX: M81.0 Age-related osteoporosis without current pathological fracture (principal); E28.319 Asymptomatic premature menopause; Z79.83 Long term (current) use of bisphosphonates | CPT/HCPCS: 99212 ==

== ENCOUNTER 2024-10-17 06:17 | Outpatient (REF) | payer OTHER, SELFPAY ==
[2024-10-17 06:33] LABS: MANUAL DIFF FLAG NO
[2024-10-17 07:22] LABS: Basophils Percent Auto 0.6 % (0-2); Eosinophils Absolute Auto 0.2 X10*3/uL (0.0-0.4); Eosinophils Percent Auto 4.3 % (0-4); Hematocrit 35.7 % (37.0-47.0); Hemoglobin 11.7 g/dl (12.0-16.0); Imm Gran Abs Auto 0.02 X10*3/uL (0.00-0.03); Imm Gran Pct Auto 0.4 % (0.0-0.4); Lymphocytes Absolute Auto 1.3 X10*3/uL (1.2-4.9); Lymphocytes Percent Auto 23.2 % (20-40); Mean Corpuscular HGB Conc 32.8 g/dl (31.0-35.0); Mean Corpuscular Hemoglobin 28.8 pg (27.0-33.0); Mean Corpuscular Volume 87.9 fL (80.0-98.0); Mean Platelet Volume 8.9 fL (9.4-12.3); Monocytes Absolute Auto 0.4 X10*3/uL (0.1-1.2); Monocytes Percent Auto 7.6 % (2-11); Neutrophils Absolute Auto 3.5 x10*3/uL (2.0-8.3); Neutrophils Percent Auto 63.9 % (45-73); Platelet Count 313 X10*3/uL (160-400); Red Blood Count 4.06 X10*6/uL (4.20-5.50); Red Cell Distribution Width 14.4 % (11.0-16.0); White Blood Count 5.4 X10*3/uL (4.8-10.8)
[2024-10-17 07:31] LABS: Appearance Urine Clear; Color Urine Yellow; Glucose Urine UA Negative (Negative); Leukocyte Esterase Urine Moderate (2+) (Negative); Nitrite Urine Negative (Negative); Specific Gravity - Urine 1.015 (1.005-1.025); UMIC TRIGGER UACC YES; Urine Blood Negative (Negative); Urine Ketones Negative (Negative); Urine Protein Negative (Neg-Trace)
[2024-10-17 07:36] LABS: Bacteria Urine None Seen (None Seen); Hyaline Casts Urine 0-2 /LPF (0-2); RBC Urine 0-2 /HPF (0-2); UACC Culture Trigger YES
[2024-10-17 07:58] LABS: Alanine Aminotransferase 9 U/L (0-31); Albumin Level 3.9 g/dL (3.5-5.0); Alkaline Phosphatase 87 U/L (39-117); Anion Gap 11 (12-20); Aspartate Amino Transferase 20 U/L (5-31); Bilirubin Total 0.4 mg/dL (0.0-1.0); Blood Urea Nitrogen 11 mg/dL (9-16); Calcium 9.1 mg/dL (8.4-10.2); Carbon Dioxide 28 mmol/L (22-29); Chloride 105 mmol/L (96-108); Cholesterol 161 mg/dL (<200); Estimated Glomerular Filt Rate > 60; Glucose Fasting 98 mg/dL (60-99); HDL Cholesterol 45 mg/dL (>40); LDL Cholesterol Calculated 99 mg/dL (<100); Potassium 3.8 mmol/L (3.3-5.1); Sodium 140 mmol/L (135-145); Total Protein 7.9 g/dL (6.5-8.0); Triglycerides 85 mg/dL (<150)
[2024-10-17 08:33] LABS: TSH reflex Free T4 1.19 uIU/mL (0.32-4.0); Vitamin D 25-OH Total 67.8 ng/mL (>30)
== END 2024-10-17 06:18 | disposition home or self-care (01) ==
LOC: HO.LAB 06:17
PROVIDERS: PCP Internal Medicine; Visit Provider Internal Medicine
DX: Z00.00 Encounter for general adult medical examination without abnormal findings (principal); D64.9 Anemia, unspecified; E78.00 Pure hypercholesterolemia, unspecified; E55.9 Vitamin D deficiency, unspecified
CPT/HCPCS: 36415; 80053; 80061; 81001; 82306; 84443; 85025; 87086; 87147

== ENCOUNTER 2024-10-23 16:36 | Outpatient (AMB) | payer OTHER, SELFPAY ==
[2024-10-23 16:37] VITALS: BP 98/74; PULSE 85; O2SAT 97; BMI 28.5
--- NOTE | 2024-10-23 16:37 | A.OFFPC_ITS ---
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 Accompanied by: Self / Same As Patient Allergies No Known Allergies [No Known Allergies*] Allergy (Verified 10/23/24 17:09) Medication List - Last Reconciled 10/23/24 by Madhav Rios MD albuterol sulfate 90 mcg/actuation 2 puffs inhalation Q6H PRN calcium carb,lactat-vitamin D3 200 mg-6.25 mcg (250 unit) (Calcet Petites) 2 tabs PO BID 30 days cholecalciferol (vitamin D3) 50 mcg PO DAILY 90 days ibuprofen 800 mg PO Q8H PRN 30 days Tobacco use date assessed: 10/23/24 Dental Screening Dental Screen Date: 10/23/24 Did you have a dental visit in the last 12 months?: Yes Did you have a dental problem in the last 6 months where you did not have access to dental care?: No Was dental information given to patient?: Patient has dentist HPI Physical Exam HPI Details Patient comes in today for her annual physical examination States that she feels okay States that she has lost a lot of weight by becoming more active and exercising regularly to try to help her osteoporosis She has also changed her diet around and is now eating a lot healthier and is hoping that this will also help lower cholesterol levels so she can avoid having to go on cholesterol-lowering medications She denies any headaches or dizziness Denies any chest pains, no shortness of breath No nausea/vomiting, no abdominal pain No change in bowel habits noted She denies any acute urinary symptoms States that she still has occasional low back pains but reports experiencing on and off joint pains as well involving other joints, including in her knees and hips, usually after working out or exercising She has tried taking some OTC Bioflex, which she thinks is helping She also takes OTC Ibuprofen PRN but one of her friends advised her to try getting a prescription for Meloxicam (which her friend is currently taking and swears to its efficacy) instead - states that she would like to try this herself She had her follow-up labs done a couple of weeks ago - to discuss her results She is up-to-date with her cancer screenings - is due for repeat colonoscopy until 2032 She had her annual mammogram done back in March 2024 States that she is up-to-date with the yearly gynecology exam and Pap smear [facility] Medical History Insomnia Overweight (BMI 25.0-29.9) Prakash's disease Lumbar degenerative disc disease Vitamin D deficiency Multinodular thyroid Osteoporosis Surgical History History of colonoscopy (~01/23/23) History of tooth extraction History of myomectomy History of appendectomy Family History Father Diabetes Hypertension CVD (cardiovascular disease) Mother Hypertension Mental health disorder Maternal Aunt Cancer Daughter Mental health disorder Son No problems noted. Sister No problems noted. Brother No problems noted. Social History Housing: House Alcohol intake: never Patient Tobacco Use Status: Never used Tobacco e-Cigarette/Vaping Use: Never Used Second Hand Smoke Exposure: Yes service: No Current occupational status: employed Cognitive needs: No Hearing needs: No Vision needs: No Questionnaire PHQ-9 Over the last 2 weeks, how often have you been bothered by any of the following problems? 1. Little interest or pleasure in doing things: not at all 2. Feeling down, depressed, or hopeless: not at all 3. Trouble falling or staying asleep, or sleeping too much: nearly every day 4. Feeling tired or having little energy: not at all 5. Poor appetite or overeating: not at all 6. Feeling bad about yourself - or that you are a failure or have let yourself or your family down: not at all 7. Trouble concentrating on things, such as reading the newspaper or watching television: not at all 8. Moving or speaking so slowly that other people could have noticed. Or the opposite - being so fidgety or restless that you have been moving around a lot more than usual: not at all 9. Thoughts that you would be better off or of hurting yourself in some way: not at all Total score: 3 Depression Screening Interpretation: Negative Depression Screening Done: Yes 93407 - PHQ-9 Billing: Yes Source: Developed by Drs. Vahid Becker, Ekaterina Zhu, Ken Zuleta and colleagues, with an educational richelle from [employer]. Thrive Questionnaire Date Thrive assessed: 10/23/24 I am a: Patient What is your living situation today?: I have a steady place to live Within the past 12 months, did the food you bought not last and you didn't have the money to get more?: Never true Within the past 12 months, did you worry whether your food would run out before you got money to buy more?: Never true Do you have trouble paying for medicines?: No Do you have trouble getting transportation to medical appointments?: No Do you have trouble paying your heating and electricity bill?: No Do you have trouble taking care of your child, family member or friend?: No Do you have trouble with day-to-day activities such as bathing, preparing meals, shopping, managing finances, etc.?: No Are you currently unemployed and looking for a job?: No Are you interested in more education?: No Please select the resources that you would like help with: None Currently or been in a relationship where the following occur: No concerns reported THRIVE Score: 0 AUDIT C Alcohol Use Questionnaire (AUDIT-C) 1. How often do you have a drink containing alcohol?: Monthly or less 2. How many drinks containing alcohol do you have on a typical day when you are drinking?: 1 or 2 3. How often do you have six or more drinks on one occasion?: Never Total Score: 1 Score Reviewed/Action Taken: Yes SHAILA-7 AMB Questionnaire SHAILA-7 Date SHAILA - 7 assessed: 10/23/24 Feeling nervous, anxious, or on edge: 0 = Not at all Not being able to stop or control worryin = Not at all Worrying too much about different things: 0 = Not at all Trouble relaxin = Not at all Being so restless that it is hard to sit still: 0 = Not at all Becoming easily annoyed or irritable: 0 = Not at all Feeling afraid as if something awful might happen: 0 = Not at all Total SHAILA-7 score (0-4 normal; 5-9 mild; 10-14 moderate; 15-21 severe): 0 Source: Developed by Drs. Vahid Becker, Ekaterina Zhu, Ken Zuleta and colleagues, with an educational richelle from [employer]. Review of Systems Const Denies chills, Denies fatigue, Denies fever(s), Denies headache(s) and Denies malaise Eyes Denies blurry vision, Denies change in vision, Denies irritation and Denies itchy eyes ENT Denies dysphagia, Denies dizziness, Denies otalgia, Denies headache(s), Denies nasal congestion, Denies neck pain, Denies odynophagia, Denies sinus pain and Denies sore throat Card Denies chest pain, Denies rapid heart rate, Denies irregular heart rhythm, Denies palpitations and Denies dyspnea Resp Denies chest congestion, Denies cough, Denies dyspnea and Denies wheezing GI Denies abdominal pain, Denies bloating, Denies constipation, Denies dysphagia, Denies heartburn, Denies diarrhea, Denies nausea, Denies odynophagia and Denies vomiting Denies hematuria, Denies urinary frequency, Denies dysuria, Denies urinary incontinence and Denies urinary urgency Musc Reports back pain (on and off), Reports arthralgias (on and off involving multiple joints , jerilyn after exercising/working out), Denies joint swelling, Denies muscle weakness and Denies neck pain Skin/Breast Denies breast pain, Denies breast mass, Denies change in pigmentation, Denies lesions, Denies rash and Denies unusual bruising Neuro Denies dizziness, Denies headache(s) and Denies paresthesias Psych Denies anxiety and Denies depression Endo Denies fatigue and Denies palpitations Rashid/Lymph Denies easy bruising Aller/Immun Denies itchy eyes and Denies wheezing Physical exam (Primary Care) Vital Signs: Last Vital Signs Pulse 85 10/23/24 16:37 BP 98/74 10/23/24 16:37 Pulse Ox 97 10/23/24 16:37 Oxygen Delivery Method Room Air 10/23/24 16:37 BMI result Body Mass Index 28.5 Tobacco/Smoking Status: Tobacco use Status Tobacco use date assessed 10/23/24 10/23/24 16:44 Patient Tobacco Use Status Never used Tobacco 10/23/24 16:44 e-Cigarette/Vaping Use Never Used 10/23/24 16:44 PHQ-9: PHQ-9 Score PHQ-9: Total score 3 10/23/24 17:16 Depression Screening Interpretation: Negative Thrive Assessment: Date of Thrive Assessment Date Thrive assessed 10/23/24 10/23/24 16:44 Currently or been in a relationship where the following occur: No concerns reported Const General: no acute distress, alert and awake Orientation/consciousness: patient oriented x3 HENMT Head: Yes normocephalic and Yes atraumatic Ears: external ears normal, TM's normal bilaterally and EAC's normal General nose exam: No nasal discharge present Face and sinus: Yes normal facial exam and Yes sinuses nontender Teeth and gingiva: dentition normal Throat: Yes posterior oropharynx normal and Yes tonsils normal (no TP congestion) Eyes Eyelids: Yes eyelids normal Conjunctivae: conjunctivae normal Pupils: Equal, round and reactive pupils present EOM: EOMs intact bilaterally Neck Neck: Yes no lymphadenopathy and Yes supple Thyroid: diffusely enlarged (mild) and nontender Resp Auscultation: clear to auscultation bilaterally, no rales and no wheezes Cardio Rate: regular rate Rhythm: regular rhythm Heart sounds: no murmurs GI Palpation (GI): Soft to palpation, nontender and No hepatosplenomegaly present Auscultation: normal bowel sounds General: Yes no CVA tenderness Back/Spine/Pelvis Back: no CVA tenderness Thoracic/Lumbar Spine: thoracic and lumbar spine normal to inspection Skin Lesions: no lesions Rashes: no rashes Neuro General: patient oriented x3, moves all extremities, no focal motor deficits and CN's II-XI intact bilaterally Cranial nerves: Yes Equal, round and reactive pupils present Cognition (Neuro): normal cognition Gait exam (Neuro): Normal gait present Extrem General: Yes no clubbing, cyanosis or edema Results Reviewed Results Reviewed: Laboratory Tests 10/09/23 10/09/23 10/17/24 06:25 06:30 06:30 WBC 5.5 Hgb 11.7 L Hct 36.7 L Plt Count 349 Sodium 141 Potassium 3.8 Creatinine 0.71 Estimated GFR > 60 Fasting Glucose 99 Calcium 9.2 AST 17 ALT 11 Triglycerides 97 Cholesterol 179 LDL Cholesterol, Calc 112 H HDL Cholesterol 48 25-OH Vitamin D Total 30.0 L TSH 2.24 Ur Specific Mccune 1.025 1.015 Urine Protein Negative Negative Urine Glucose (UA) Negative Negative Urine Blood Negative Negative Urine Nitrite Negative Negative Ur Leukocyte Esterase Small (1+) H Moderate (2+) H 10/17/24 06:32 WBC 5.4 Hgb 11.7 L Hct 35.7 L Plt Count 313 Sodium 140 Potassium 3.8 Creatinine 0.70 Estimated GFR > 60 Fasting Glucose 98 Calcium 9.1 AST 20 ALT 9 Triglycerides 85 Cholesterol 161 LDL Cholesterol, Calc 99 HDL Cholesterol 45 25-OH Vitamin D Total 67.8 TSH 1.19 Ur Specific Mccune Urine Protein Urine Glucose (UA) Urine Blood Urine Nitrite Ur Leukocyte Esterase Coding Level of Care Code Est Pt Prev Care 40-64y(62830) Diagnoses Annual physical exam Z00.00 Osteoporosis, unspecified osteoporosis type, unspecified pathological fracture presence M81.0 Osteoporosis type: unspecified Presence of current pathological fracture: unspecified Prakash's disease E06.3 Multinodular thyroid E04.2 Elevated parathyroid hormone R79.89 Vitamin D deficiency E55.9 Degeneration of intervertebral disc of lumbar region with discogenic back pain M51.360 Disc-related pain type: discogenic back pain only Insomnia, unspecified type G47.00 Insomnia type: unspecified Overweight (BMI 25.0-29.9) E66.3 Additional Codes PHQ-9 - 93412 - PHQ-9 Billing: Yes ([id number]) Assessment & Plan Assessment & Plan (1) Annual physical exam: Code(s): Z00.00 - Encounter for general adult medical examination without abnormal findings Category: Medical Plan: Results of her labs done a couple of weeks ago reviewed and discussed with patient - her cholesterol levels have improved significantly from previous on her recent labs, likely due to the positive changes she has made to her diet as well as her participating now in regular exercise and physical activity She is up-to-date with her cancer screenings - is due for repeat colonoscopy until 2032 She had her annual mammogram done back in March 2024 States that she is up-to-date with the yearly gynecology exam and Pap smear (2) Osteoporosis: Code(s): M81.0 - Age-related osteoporosis without current pathological fracture Category: Medical Qualifiers: Osteoporosis type: unspecified Presence of current pathological fracture: unspecified Qualified Code(s): M81.0 - Age-related osteoporosis without current pathological fracture Plan: Patient was on Tymlos 80 mcg SQ daily from 09/16/2020 through February 2022 for a total of 18 months She was then switched over to IV Reclast once a year Repeat BMD done a couple of years ago in September 2022 revealed (+) osteoporosis based on the lowest T-score value of -2.6 in the lumbar spine - BMD is mostly unchanged from previous (stable); urine N-Telopeptide remains suppressed on her labs Continue daily Calcium and Vitamin D supplements States that Dr. Herman has ordered a follow up BMD on her to be done in a few months Follow up with endocrinology as scheduled Will have her recheck some labs in 6 months for follow up (3) Prakash's disease: Code(s): E06.3 - Autoimmune thyroiditis Category: Medical Plan: Patient is currently clinically euthyroid and has no symptoms of thyroid disease or insufficiency TFTs were normal on her recent labs done a couple of weeks ago - ?will continue to monitor her TFTs regularly Follow-up with endocrinology as scheduled (4) Multinodular thyroid: Code(s): E04.2 - Nontoxic multinodular goiter Category: Medical Plan: Patient has a small, palpable, diffusely enlarged thyroid gland on exam but thyroid was non-tender She had thyroid US back in 2018 which revealed (+) multinodular goiter but these are mostly pseudnodules and not true nodules She was referred to Dr. Mark to discuss total thyroidectomy due to compressive symptoms but no surgery was recommended Patient currently denies any compressive symptoms (5) Elevated parathyroid hormone: Code(s): R79.89 - Other specified abnormal findings of blood chemistry Category: Medical Plan: Resolved with calcium and vitamin D supplements Her PTH and serum calcium levels have returned to normal when last checked in late 2022 (6) Vitamin D deficiency: Code(s): E55.9 - Vitamin D deficiency, unspecified Category: Medical Plan: Continue Vitamin D3 2000 units QD (7) Lumbar degenerative disc disease: Code(s): M51.36 - Other intervertebral disc degeneration, lumbar region Category: Medical Qualifiers: Disc-related pain type: discogenic back pain only Qualified Code(s): M51.360 - Other intervertebral disc degeneration, lumbar region with discogenic back pain only Plan: Reinforced activity and weight-lifting restrictions States that her low back pain has not been bothering her too much lately but she has been experiencing on and off joint pains at times elsewhere, especially when she is working out, including in her knees and hips She was previously taking OTC Ibuprofen PRN but per request, will try her on Meloxicam 15 mg QD with food PRN for pain; Ibuprofen will be discontinued Can consider further work ups and/or referral to physical therapy if her low back pain flares up again (8) Insomnia: Code(s): G47.00 - Insomnia, unspecified Category: Medical Qualifiers: Insomnia type: unspecified Qualified Code(s): G47.00 - Insomnia, u nspecified Plan: Sleep hygiene reinforced She has taken Trazodone in the past, which she states did not really help She has been taking OTC Melatonin 3 mg Q HS PRN since, which has been helping somewhat (9) Overweight (BMI 25.0-29.9): Code(s): E66.3 - Overweight Category: Medical Plan: Reinforced diet/exercise as tolerated/lose weight Plan Follow-up in 6 months Orders: Orders Lipid Panel 6 Months E78.00 - Pure hypercholesterolemia, unspecified Complete Blood Count Auto Diff 6 Months D64.9 - Anemia, unspecified [address]. Panel Fast 6 Months E78.00 - Pure hypercholesterolemia, unspecified Medications: New meloxicam Take with food 15 mg PO DAILY 90 days PRN 90 tabs 0RF pain
== END 2024-10-23 17:26 | disposition home or self-care (01) ==
LOC: HO.HMCH 16:37
PROVIDERS: PCP Internal Medicine; Visit Provider Internal Medicine
DX: Z00.00 Encounter for general adult medical examination without abnormal findings (principal); M81.0 Age-related osteoporosis without current pathological fracture; E06.3 Autoimmune thyroiditis; E04.2 Nontoxic multinodular goiter; R79.89 Other specified abnormal findings of blood chemistry; E55.9 Vitamin D deficiency, unspecified; M51.360 Other intervertebral disc degeneration, lumbar region with discogenic back pain only; G47.00 Insomnia, unspecified; E66.3 Overweight

== ENCOUNTER → 2024-10-23 16:36 | Outpatient (BNVA) | payer OTHER, SELFPAY | PROVIDERS: PCP Internal Medicine; Visit Provider Internal Medicine | DX: Z00.00 Encounter for general adult medical examination without abnormal findings (principal); M81.0 Age-related osteoporosis without current pathological fracture; E06.3 Autoimmune thyroiditis; E04.2 Nontoxic multinodular goiter; R79.89 Other specified abnormal findings of blood chemistry; E55.9 Vitamin D deficiency, unspecified; M51.360 Other intervertebral disc degeneration, lumbar region with discogenic back pain only; G47.00 Insomnia, unspecified; E66.3 Overweight; Z68.28 Body mass index [BMI] 28.0-28.9, adult | CPT/HCPCS: 96127; 99396 ==

== ENCOUNTER 2025-01-20 09:27 | Outpatient (REF) | payer OTHER, SELFPAY ==
[2025-01-24 12:11] LABS: N-Telopeptide 24Hr Urine 30
== END 2025-01-20 09:28 | disposition home or self-care (01) ==
LOC: HO.LNP 09:27
PROVIDERS: Visit Provider Internal Medicine Endocrinology, Diabetes & Metabolism
DX: Z13.89 Encounter for screening for other disorder (principal)

== ENCOUNTER 2025-01-28 07:57 | Outpatient (REF) | payer OTHER, SELFPAY ==
--- NOTE | ~2025-01-28 | MM_ITS ---
EXAMINATION: DXA BONE DENSITY AXIAL HISTORY: M81.0 - Age-related osteoporosis without current pathological fracture TECHNIQUE: [employer] Dual energy absorptiometry (DEXA) of the lumbar spine, total left hip, and femoral neck was performed. COMPARISON: Comparison is made with the prior examination dated 10/14/2022. FINDINGS: The bone mineral density of the lumbar spine is 0.827 g/cm2, corresponding to a T-score of -2.9, and a Z-score of -2.7. This is indicative of osteoporosis. This represents a BMD change of -4.4% compared to the prior exam. This is statistically significant. The bone mineral density of the left total hip is 0.919 g/cm2, corresponding to a T-score of -0.7, and a Z-score of -0.4. This is indicative of normal bone mineral density. This represents a BMD change of 0.3% compared to the prior exam. This is not statistically significant. The bone mineral density of the left femoral neck is 0.953 g/cm2, corresponding to a T-score of -0.6, and a Z-score of 0.1. This is indicative of normal bone mineral density. This represents a BMD change of 7.8% compared to the prior exam. MM/XR DEXA axial skeleton IMPRESSION: Based on bone mineral density, and according to World Health Organization (WHO) criteria, the diagnosis is consistent with osteoporosis. Statistically, 68% of repeat scans fall within 1 SD (+/- 0.010 g/cm2 for AP spine L1-L4) and 1 SD (+/- 0.012 g/cm2 for femur total) FRAX is a trademark of the [employer]'s [place] [facility] Met[employer], a World Health Organization (WHO) Collaborating Center. Electronically signed by: Vahid Mcclure MD 01/28/2025 08:41 AM EDT
== END 2025-01-28 07:58 | disposition home or self-care (01) ==
LOC: HO.MAMMO 07:57
PROVIDERS: PCP Internal Medicine; Visit Provider Internal Medicine Endocrinology, Diabetes & Metabolism
DX: M81.0 Age-related osteoporosis without current pathological fracture (principal)
CPT/HCPCS: 77080

== ENCOUNTER → 2025-01-28 08:15 | Outpatient (BNV) | payer OTHER, SELFPAY | PROVIDERS: PCP Internal Medicine; Visit Provider Radiology Diagnostic Radiology | DX: E28.39 Other primary ovarian failure (principal) | CPT/HCPCS: 77080 ==

== ENCOUNTER 2025-01-29 06:17 | Outpatient (REF) | payer OTHER, SELFPAY ==
[2025-02-04 08:08] LABS: NTXCreaRU 238 mg/dL (20-275)
== END 2025-01-29 06:18 | disposition home or self-care (01) ==
LOC: HO.LAB 06:17
PROVIDERS: PCP Internal Medicine; Visit Provider Internal Medicine Endocrinology, Diabetes & Metabolism
DX: M81.0 Age-related osteoporosis without current pathological fracture (principal)
CPT/HCPCS: 82523

== ENCOUNTER 2025-02-04 09:56 | Outpatient (AMB) | payer OTHER, SELFPAY ==
[2025-02-04 10:05] VITALS: BP 96/58; PULSE 90; O2SAT 97; BMI 27.1
--- NOTE | 2025-02-04 10:05 | A.OFFVIS_ITS ---
Vital Signs 02/04/25 10:05 Height 5 ft 5.79 in Weight 166 lb 10.711 oz BMI 27.1 BP 96/58 L Blood Pressure Location Lt brachial Position Sitting Pulse 90 Pulse Source Pulse Oximeter Pulse Oximetry (%) 97 Oxygen Delivery Method Room Air Intake Visit Reasons: Osteoporosis DEXA Results Intake Note: Patient present today for Osteoporosis and DEXA results. Senior Drafter Required: No Accompanied by: Self / Same As Patient Allergies No Known Allergies (No Known Allergies*) Allergy (Verified 02/04/25 10:06) Medication List - Last Reconciled 02/04/25 by Vahid Herman MD albuterol sulfate 90 mcg/actuation 2 puffs inhalation Q6H PRN calcium carb,lactat-vitamin D3 200 mg-6.25 mcg (250 unit) (Calcet Petites) 2 tabs PO BID 30 days cholecalciferol (vitamin D3) 50 mcg PO DAILY 90 days ibuprofen 800 mg PO Q8H PRN 30 days meloxicam 15 mg PO DAILY PRN 90 days HPI Comments Details: 54 YO Female with PMHx premature ovarian failure is seen in F/U for Osteoporosis 1) Osteoporosis: First diagnosed in August of 2018. Began treatment with Tymlos 09/23/2020. Completed 18 months of this in February 2022 and was transitioned to IV Reclast with her first dose 03/17/2022. She had a full workup for secondary causes of Osteoporosis which was all WNL.. Recently, PTH level was elevated No history of pathologic fracture or ONJ. Has 1-2 servings of dietary calcium per day in the form of milk and cheese. Currently not taking Calcium daily. Takes Vitamin D 4000 IU daily. Denies ever using PPI, anticoagulant, antiepileptic or glucocorticoid medication. Does weight bearing exercise 3 days per week for 60 minutes a time in the form of walking. Fracture history: Traumatic fracture of the L leg at age 7. Height loss: Denies. WEIGHER AND CRUSHER history: Menarche was age 14, menses were always irregular. , breastfed for 9 months in total. Menopause was age 39. She did not use HRT after. History of Kidney stones: Denies. Family history of Osteoporosis in her Mother. UTD on dental cleanings and sees dentist every 6 months. She did have dental extractions in April 2019, and treatment was delayed due to this. She had a dental implant started in Aug 2019, and did require bone grafting after. The second stage of this procedure was delayed due to COVID 19, and she has had some issues with graft acceptance/healing. DXA dated 09/16/2020: FINDINGS: AP SPINE L2-L4 (excluding L1): The data of L1-L4 has been changed to exclude the L1 vertebral body, because probable mild degenerative change at this level may cause overestimation of lumbar spine density. Current: BMD 0.802 g/cm2, Z-score -3.6, T-score -3.3, osteoporosis, 13.4% increase from baseline (<5% change is not significant). Baseline: BMD 0.707 g/cm2. LEFT FEMUR, NECK: Current: BMD 0.919 g/cm2, Z-score -0.5, T-score -0.9, normal. Prior measured was RIGHT (BMD 0.962 g/cm2, Z-score -0.2, T-score -0.5, normal). LEFT FEMUR, TOTAL: Current: BMD 0.923 g/cm2, Z-score -0.6, T-score -0.7, normal. Prior measured was RIGHT (BMD 0.954 g/cm2, Z-score -0.4, T-score -0.4, normal). 2) Nontoxic MNG: Patient with palpable goiter. Had thyroid US which revealed a multinodular goiter. Images were reviewed, and this represented a marcos gland with only pseudnodules, no true nodules. She was referred to Dr. Mark to discuss total thyroidectomy due to compressive symptoms. No surgery was recommended. She denies any compressive symptoms currently. Thyroid US: 03/19/19 FINDINGS: SIZE: Measurements of the thyroid lobes and nodules are given in sagittal, anteroposterior and transverse dimensions respectively. Right Thyroid Lobe: 5.9 x 2.0 x 2.0 cm, volume 12.7 mL. Parenchyma: The gland echotexture is heterogeneous. Thyroid vascularity is normal. Left Thyroid Lobe: 5.6 x 1.7 x 2.1 cm, volume 10.1 mL. Parenchyma: The gland echotexture is heterogeneous. Thyroid vascularity is normal. Isthmus: 0.7 cm in maximum AP dimension. RIGHT THYROID LOBE: There is 1 nodule seen. 1. Location: Superior. Size: 0.3 x 0.2 x 0.2 cm. Nodule characteristics: Hypoechoic and cystic, smooth margin, no calcification and no flow.. ISTHMUS: No nodules. LEFT THYROID LOBE: There is 1 nodule seen. 1. Location: Medial mid. Size: 2.3 x 0.7 x 1.7 cm. Nodule characteristics: Hypoechoic and heterogeneous, smooth margin, no calcification and positive intranodular flow. NODES: No lymphadenopathy is seen in the tissue surrounding the thyroid gland. Labs: Laboratory Tests 03/16/22 09/21/22 07:32 06:26 Sodium 141 Potassium 4.4 Creatinine 0.73 Estimated GFR > 60 25-OH Vitamin D Total 37.0 47.3 TSH 1.68 Free T4 1.09 on calcium and vitamin-D. No fracture since last visit The patient is a 54-year-old female presenting with osteoporosis management and monitoring. She has been taking calcium and vitamin D supplements, along with Biflex and meloxicam, which she started three months ago. Her bone density has remained stable, and she previously underwent treatment with Tymlos and Reclast, which resulted in the suppression of bone turnover markers. The patient is advised to continue with weight-bearing exercises and maintain her current medication regimen without introducing new medications at this time. A follow-up is scheduled in six months, with a urine marker test to be conducted a month prior to the visit to ensure continued suppression of bone turnover markers. [facility] Medical History Insomnia Overweight (BMI 25.0-29.9) Prakash's disease Lumbar degenerative disc disease Vitamin D deficiency Multinodular thyroid Osteoporosis Surgical History History of colonoscopy (~01/23/23) History of tooth extraction History of myomectomy History of appendectomy Family History Father Diabetes Hypertension CVD (cardiovascular disease) Mother Hypertension Mental health disorder Maternal Aunt Cancer Daughter Mental health disorder Son No problems noted. Sister No problems noted. Brother No problems noted. Social History Housing: House Alcohol intake: never Patient Tobacco Use Status: Never used Tobacco e-Cigarette/Vaping Use: Never Used Second Hand Smoke Exposure: Yes service: No Current occupational status: employed Cognitive needs: No Hearing needs: No Vision needs: No Physical Exam Vital Signs: Last Vital Signs Pulse 90 02/04/25 10:05 BP 96/58 L 02/04/25 10:05 Pulse Ox 97 02/04/25 10:05 Oxygen Delivery Method Room Air 02/04/25 10:05 BMI result Body Mass Index 27.1 Assessment & Plan Assessment & Plan (1) Osteoporosis: Code(s): M81.0 - Age-related osteoporosis without current pathological fracture Category: Medical Qualifiers: Osteoporosis type: unspecified Presence of current pathological fracture: unspecified Qualified Code(s): M81.0 - Age-related osteoporosis without current pathological fracture Plan: This this is a 52-year-old female with a history of osteoporosis who received a full course of Tymlos proceeded by 1 dose of Reclast. Recent DEXA bone density showed stability Secondary workup was negative . Urine NTX is suppressed Plan is to continue with calcium and vitamin-D. . I also encouraged the use of consistently taking the calcium and vitamin-D and also weight-bearing exercise. We will check urine NTX in 6 months and reinitiate therapy when urine NTX increases 1. Osteoporosis The patient's bone density is stable, and bone turnover markers are suppressed. She is advised to continue with calcium and vitamin D supplements, Biflex, and meloxicam. Weight-bearing exercises are recommended to maintain bone health. A follow-up is scheduled in six months, with a urine marker test to be conducted a month prior to ensure continued suppression of bone turnover markers. I discussed with the patient the importance of continuing her current medication regimen, including calcium and vitamin D supplements, Biflex, and meloxicam, to manage her osteoporosis. We reviewed her stable bone density and suppressed bone turnover markers, emphasizing the role of weight-bearing exercises in main taining bone health. I recommended a follow-up in six months, with a urine marker test to be conducted a month prior to ensure continued suppression of bone turnover markers. - Continue taking calcium and vitamin D supplements, Biflex, and meloxicam as prescribed. - Engage in regular weight-bearing exercises to support bone health. - Schedule a follow-up appointment in six months. - Complete a urine NTX test one month before the next appointment. The patient had an opportunity to ask questions regarding treatment plan. The patient expressed understanding and agreement with the above treatment plan. Patient was informed and verbally consented to the use of an ambient scribe for clinic note documentation during this visit. Orders: Orders Collagen Crosslinks NTX 6 Months M81.0 - Age-related osteoporosis without current pathological fracture Coding Level of Care Code Est Pt Level 3 (93421) Diagnoses Osteoporosis, unspecified osteoporosis type, unspecified pathological fracture presence M81.0 Osteoporosis type: unspecified Presence of current pathological fracture: unspecified
== END 2025-02-04 10:59 | disposition home or self-care (01) ==
LOC: HO.ENCR 09:57
PROVIDERS: PCP Internal Medicine; Visit Provider Internal Medicine Endocrinology, Diabetes & Metabolism
DX: M81.0 Age-related osteoporosis without current pathological fracture (principal)
CPT/HCPCS: 99213

== ENCOUNTER → 2025-02-04 09:56 | Outpatient (BNVA) | payer OTHER, SELFPAY | PROVIDERS: PCP Internal Medicine; Visit Provider Internal Medicine Endocrinology, Diabetes & Metabolism | DX: Z71.2 Person consulting for explanation of examination or test findings (principal); M81.0 Age-related osteoporosis without current pathological fracture | CPT/HCPCS: 99212 ==

== ENCOUNTER 2025-04-14 06:13 | Outpatient (REF) | payer OTHER, SELFPAY ==
[2025-04-14 06:37] LABS: MANUAL DIFF FLAG NO
[2025-04-14 07:24] LABS: Hematocrit 37.0 % (37.0-47.0); Hemoglobin 11.7 g/dl (12.0-16.0); Imm Gran Abs Auto 0.01 X10*3/uL (0.00-0.03); Imm Gran Pct Auto 0.2 % (0.0-0.4); Lymphocytes Absolute Auto 1.2 X10*3/uL (1.2-4.9); Mean Corpuscular HGB Conc 31.6 g/dl (31.0-35.0); Mean Corpuscular Hemoglobin 28.7 pg (27.0-33.0); Mean Corpuscular Volume 90.7 fL (80.0-98.0); NRBC Abs Auto 0.000 X10*3/uL (0.0-0.012); NRBC Pct Auto 0.0 /100WBC (0.0-0.2); Platelet Count 299 X10*3/uL (160-400); Red Blood Count 4.08 X10*6/uL (4.20-5.50); White Blood Count 5.1 X10*3/uL (4.8-10.8)
[2025-04-14 07:39] LABS: Appearance Urine Clear; Glucose Urine UA Negative (Negative); PH 5.0 (5.0-9.0); Specific Gravity - Urine 1.025 (1.005-1.025); UMIC TRIGGER UACC YES
[2025-04-14 07:43] LABS: UACC Culture Trigger YES
[2025-04-14 07:55] LABS: Alanine Aminotransferase 9 U/L (0-31); Albumin Level 4.2 g/dL (3.5-5.0); Alkaline Phosphatase 79 U/L (39-117); Anion Gap 12 (12-20); Aspartate Amino Transferase 22 U/L (5-31); Blood Urea Nitrogen 17 mg/dL (9-16); Calcium 8.9 mg/dL (8.4-10.2); Carbon Dioxide 29 mmol/L (22-29); Chloride 104 mmol/L (96-108); Cholesterol 176 mg/dL (<200); Estimated Glomerular Filt Rate > 60; HDL Cholesterol 46 mg/dL (>40); Potassium 4.0 mmol/L (3.3-5.1); Sodium 141 mmol/L (135-145); Total Protein 7.5 g/dL (6.5-8.0); Triglycerides 99 mg/dL (<150)
== END 2025-04-14 06:14 | disposition home or self-care (01) ==
LOC: HO.LAB 06:13
PROVIDERS: PCP Internal Medicine; Visit Provider Internal Medicine
DX: E78.00 Pure hypercholesterolemia, unspecified (principal); D64.9 Anemia, unspecified
CPT/HCPCS: 36415; 80053; 80061; 81001; 85025; 87086; 87147

== ENCOUNTER 2025-04-21 16:30 | Outpatient (AMB) | payer OTHER, SELFPAY ==
[2025-04-21 16:34] VITALS: BP 106/76; PULSE 90; TEMP 36.2; O2SAT 98; BMI 27.0
--- NOTE | 2025-04-21 16:34 | A.OFFPC_ITS ---
Vital Signs 04/21/25 16:34 Height 5 ft 5.5 in Weight 165 lb BMI 27.0 BP 106/76 Blood Pressure Location Lt brachial Position Sitting Pulse 90 Pulse Source Pulse Oximeter Temp 97.1 F Temp Source Temporal Artery Scan Pulse Oximetry (%) 98 Oxygen Delivery Method Room Air Intake Visit Reasons: 6 MONTH Allergies No Known Allergies (No Known Allergies*) Allergy (Verified 04/21/25 17:07) Medication List - Last Reconciled 04/21/25 by Madhav Rios MD albuterol sulfate 90 mcg/actuation 2 puffs inhalation Q6H PRN calcium carb,lactat-vitamin D3 200 mg-6.25 mcg (250 unit) (Calcet Petites) 2 tabs PO BID 30 days cholecalciferol (vitamin D3) 50 mcg PO DAILY 90 days ibuprofen 800 mg PO Q8H PRN 30 days meloxicam 15 mg PO DAILY PRN 90 days Tobacco use date assessed: 04/21/25 Dental Screening Dental Screen Date: 04/21/25 Did you have a dental visit in the last 12 months?: Yes Did you have a dental problem in the last 6 months where you did not have access to dental care?: No Was dental information given to patient?: Patient has dentist HPI 6 MONTH HPI Details Patient comes in today for her follow-up visit States that she feels okay She denies any headaches or dizziness Denies any chest pains, no increased shortness of breath No nausea/vomiting, no abdominal pain No change in bowel habits noted States that she has been having some vaginal discharge for the past couple of days thinks that she may have a yeast infection and plans to reach out her supplier engineer to request for a prescription for Fluconazole She had her follow-up labs done last week - to discuss her results COUNT INCLUDES THE [facility] Medical History Insomnia Overweight (BMI 25.0-29.9) Prakash's disease Lumbar degenerative disc disease Vitamin D deficiency Multinodular thyroid Osteoporosis Surgical History History of colonoscopy (~01/23/23) History of tooth extraction History of myomectomy History of appendectomy Family History Father Diabetes Hypertension CVD (cardiovascular disease) Mother Hypertension Mental health disorder Maternal Aunt Cancer Daughter Mental health disorder Son No problems noted. Sister No problems noted. Brother No problems noted. Social History Housing: House Alcohol intake: never Patient Tobacco Use Status: Never used Tobacco e-Cigarette/Vaping Use: Never Used Second Hand Smoke Exposure: Yes service: No Current occupational status: employed Cognitive needs: No Hearing needs: No Vision needs: No Questionnaire PHQ-9 Over the last 2 weeks, how often have you been bothered by any of the following problems? 1. Little interest or pleasure in doing things: not at all 2. Feeling down, depressed, or hopeless: not at all 3. Trouble falling or staying asleep, or sleeping too much: nearly every day 4. Feeling tired or having little energy: not at all 5. Poor appetite or overeating: not at all 6. Feeling bad about yourself - or that you are a failure or have let yourself or your family down: not at all 7. Trouble concentrating on things, such as reading the newspaper or watching television: not at all 8. Moving or speaking so slowly that other people could have noticed. Or the opposite - being so fidgety or restless that you have been moving around a lot more than usual: not at all 9. Thoughts that you would be better off or of hurting yourself in some way: not at all Total score: 3 Depression Screening Interpretation: Negative Depression Screening Done: Yes 22402 - PHQ-9 Billing: Yes Source: Developed by Drs. Vahid Becker, Ekaterina Zhu, Ken Zuleta and colleagues, with an educational richelle from [employer]. Thrive Questionnaire Date Thrive assessed: 10/16/24 I am a: Patient What is your living situation today?: I have a steady place to live Within the past 12 months, did the food you bought not last and you didn't have the money to get more?: Never true Within the past 12 months, did you worry whether your food would run out before you got money to buy more?: Never true Do you have trouble paying for medicines?: No Do you have trouble getting transportation to medical appointments?: No Do you have trouble paying your heating and electricity bill?: No Do you have trouble taking care of your child, family member or friend?: No Do you have trouble with day-to-day activities such as bathing, preparing meals, shopping, managing finances, etc.?: No Are you currently unemployed and looking for a job?: No Are you interested in more education?: No Please select the resources that you would like help with: None Currently or been in a relationship where the following occur: No concerns reported THRIVE Score: 0 AUDIT C Alcohol Use Questionnaire (AUDIT-C) 1. How often do you have a drink containing alcohol?: Monthly or less 2. How many drinks containing alcohol do you have on a typical day when you are drinking?: 1 or 2 3. How often do you have six or more drinks on one occasion?: Never Total Score: 1 Score Reviewed/Action Taken: Yes SHAILA-7 AMB Questionnaire SHAILA-7 Date SHAILA - 7 assessed: 10/23/24 Feeling nervous, anxious, or on edge: 0 = Not at all Not being able to stop or control worryin = Not at all Worrying too much about different things: 0 = Not at all Trouble relaxin = Not at all Being so restless that it is hard to sit still: 0 = Not at all Becoming easily annoyed or irritable: 0 = Not at all Feeling afraid as if something awful might happen: 0 = Not at all Total SHAILA-7 score (0-4 normal; 5-9 mild; 10-14 moderate; 15-21 severe): 0 Source: Developed by Drs. Vahid Becker, Ekaterina Zhu, Ken Zuleta and colleagues, with an educational richelle from [employer]. Review of Systems Const Denies chills, Denies fatigue, Denies fever(s) and Denies headache(s) ENT Denies dysphagia, Denies dizziness, Denies otalgia, Denies headache(s), Denies neck pain, Denies odynophagia and Denies sore throat Card Denies chest pain, Denies irregular heart rhythm, Denies palpitations and Denies dyspnea Resp Denies chest congestion, Denies cough and Denies dyspnea GI Denies abdominal pain, Denies constipation, Denies dysphagia, Denies heartburn, Denies diarrhea, Denies nausea, Denies odynophagia and Denies vomiting Denies urinary frequency, Denies dysuria, Denies urinary urgency and Reports vaginal discharge (see HPI) Musc Reports back pain (on and off), Reports arthralgias (on and off involving multiple joints , jerilyn after exercising/working out) and Denies neck pain Skin/Breast Denies breast mass and Denies rash Neuro Denies dizziness, Denies headache(s) and Denies paresthesias Psych Denies anxiety and Denies depression Endo Denies fatigue and Denies palpitations Rashid/Lymph Denies easy bruising Physical exam (Primary Care) Vital Signs: Last Vital Signs Temp 97.1 F 04/21/25 16:34 Pulse 90 04/21/25 16:34 BP 106/76 04/21/25 16:34 Pulse Ox 98 04/21/25 16:34 Oxygen Delivery Method Room Air 04/21/25 16:34 BMI result Body Mass Index 27.0 Tobacco/Smoking Status: Tobacco use Status Tobacco use date assessed 04/21/25 04/21/25 16:37 Patient Tobacco Use Status Never used Tobacco 04/21/25 16:37 e-Cigarette/Vaping Use Never Used 04/21/25 16:37 PHQ-9: PHQ-9 Score PHQ-9: Total score 3 04/21/25 17:11 Depression Screening Interpretation: Negative Thrive Assessment: Date of Thrive Assessment Date Thrive assessed 10/16/24 04/21/25 16:37 Currently or been in a relationship where the following occur: No concerns reported Const General: no acute distress and alert HENMT Ears: TM's normal bilaterally and EAC's normal Throat: Yes posterior oropharynx normal and Yes tonsils normal (no TP congestion) Neck Neck: Yes no lymphadenopathy and Yes supple Thyroid: diffusely enlarged (mild) and nontender Resp Auscultation: clear to auscultation bilaterally, no rales and no wheezes Cardio Rate: regular rate Rhythm: regular rhythm Heart sounds: no murmurs GI Palpation (GI): Soft to palpation and nontender Auscultation: normal bowel sounds General: Yes no CVA tenderness Back/Spine/Pelvis Back: no CVA tenderness Thoracic/Lumbar Spine: thoracic and lumbar spine normal to inspection Skin Rashes: no rashes Extrem General: Yes no clubbing, cyanosis or edema Results Reviewed Results Reviewed: Laboratory Tests 04/14/25 04/14/25 06:18 06:35 WBC 5.1 Hgb 11.7 L Hct 37.0 Plt Count 299 Sodium 141 Potassium 4.0 Creatinine 0.70 Estimated GFR > 60 Fasting Glucose 99 Calcium 8.9 AST 22 ALT 9 Triglycerides 99 Cholesterol 176 LDL Cholesterol, Calc 111 H HDL Cholesterol 46 Ur Specific [place] 1.025 Urine Protein Negative Urine Glucose (UA) Negative Urine Blood Negative Urine Nitrite Negative Ur Leukocyte Esterase Moderate (2+) H Coding Level of Care Code Est Pt Level 4 (08458) Diagnoses Osteoporosis, unspecified osteoporosis type, unspecified pathological fracture presence M81.0 Osteoporosis type: unspecified Presence of current pathological fracture: unspecified Prakash's disease E06.3 Multinodular thyroid E04.2 Elevated parathyroid hormone R79.89 Vitamin D deficiency E55.9 Degeneration of intervertebral disc of lumbar region with discogenic back pain M51.360 Disc-related pain type: discogenic back pain only Vaginal discharge N89.8 Insomnia, unspecified type G47.00 Insomnia type: unspecified Overweight (BMI 25.0-29.9) E66.3 Breast cancer screening by mammogram Z12.31 Additional Codes PHQ-9 - 61753 - PHQ-9 Billing: Yes ([id number]) Assessment & Plan Assessment & Plan (1) Osteoporosis: Code(s): M81.0 - Age-related osteoporosis without current pathological fracture Category: Medical Qualifiers: Osteoporosis type: unspecified Presence of current pathological fracture: unspecified Qualified Code(s): M81.0 - Age-related osteoporosis without current pathological fracture Plan: Patient was on Tymlos 80 mcg SQ daily from 09/16/2020 through February 2022 for a total of 18 months She was then switched over to IV Reclast once a year Repeat BMD done a couple of years ago in September 2022 revealed (+) osteoporosis based on the lowest T-score value of -2.6 in the lumbar spine - BMD is mostly unchanged from previous (stable); urine N-Telopeptide remains suppressed on her labs Her most recent BMD done in January 2025 revealed (+) lowest T-score of -2.9, and a Z-score of -2.7 in the lumbar spine indicative of osteoporosis although her BMD remains mostly unchanged from her previous scan The bone density in her left hip and left femoral neck remain normal Continue daily Calcium and Vitamin D supplements Follow up with endocrinology (Dr. Herman) as scheduled Will have her recheck some labs in 6 months for follow up (2) Prakash's disease: Code(s): E06.3 - Autoimmune thyroiditis Category: Medical Plan: Patient is currently clinically euthyroid and has no symptoms of thyroid disease or insufficiency Her TFTs were normal on her recent labs done last week - ?will continue to monitor her TFTs regularly Follow-up with endocrinology as scheduled (3) Multinodular thyroid: Code(s): E04.2 - Nontoxic multinodular goiter Category: Medical Plan: Patient has a small, palpable, diffusely enlarged thyroid gland on exam but thyroid was non-tender She had thyroid US back in 2019 which revealed (+) multinodular goiter but these are mostly pseudnodules and not true nodules She was referred to Dr. Mark to discuss total thyroidectomy due to compressive symptoms but no surgery was recommended Patient currently denies any compressive symptoms (4) Elevated parathyroid hormone: Code(s): R79.89 - Other specified abnormal findings of blood chemistry Category: Medical Plan: Resolved with calcium and vitamin D supplements Her PTH level has returned to normal when last checked in late 2022 Serum calcium level remained normal on her labs done last week (5) Vitamin D deficiency: Code(s): E55.9 - Vitamin D deficiency, unspecified Category: Medical Plan: Continue Vitamin D3 2000 units QD (6) Lumbar degenerative disc disease: Code(s): M51.36 - Other intervertebral disc degeneration, lumbar region Category: Medical Qualifiers: Disc-related pain type: discogenic back pain only Qualified Code(s): M51.360 - Other intervertebral disc degeneration, lumbar region with discogenic back pain only Plan: Reinforced activity and weight-lifting restrictions States that her low back pain has not been bothering her too much lately but she has been experiencing on and off joint pains at times elsewhere, especially when she is working out, including in her knees and hips She was previously taking OTC Ibuprofen PRN but per request, will try her on Meloxicam 15 mg QD with food PRN for pain; Ibuprofen will be discontinued Can consider further work ups and/or referral to physical therapy if her low back pain flares up again (7) Vaginal discharge: Code(s): N89.8 - Other specified noninflammatory disorders of vagina Category: Medical Plan: Patient was planning to try reaching out to her supplier engineer to request for Rx for Fluconazole but I have advised her that I can go ahead and send in Rx for Fluconazole 150 mg x 1 dose we are not sure how long it will take for her to reach out her supplier engineer (8) Insomnia: Code(s): G47.00 - Insomnia, unspecified Category: Medical Qualifiers: Insomnia type: unspecified Qualified Code(s): G47.00 - Insomnia, u nspecified Plan: Sleep hygiene reinforced She has taken Trazodone in the past, which she states did not really help She has been taking OTC Melatonin 3 mg Q HS PRN since, which has been helping somewhat (9) Overweight (BMI 25.0-29.9): Code(s): E66.3 - Overweight Category: Medical Plan: Reinforced diet/exercise as tolerated/lose weight (10) Breast cancer screening by mammogram: Code(s): Z12.31 - Encounter for screening mammogram for malignant neoplasm of breast Category: Medical Plan: Patient is due for her repeat annual mammogram and we will go ahead and order this for her Plan To return in 6 months for her next physical examination Orders: Orders Lipid Panel 6 Months E78.00 - Pure hypercholesterolemia, unspecified, Z00.00 - Encounter for general adult medical examination without abnormal findings Vitamin D 25-OH Total 6 Months E55.9 - Vitamin D deficiency, unspecified, Z00.00 - Encounter for general adult medical examination without abnormal findings MM tomosynthesis screening BI 04/21/25 Z12.31 - Encounter for screening mammogram for malignant neoplasm of breast Complete Blood Count Auto Diff 6 Months D64.9 - Anemia, unspecified, Z00.00 - Encounter for general adult medical examination without abnormal findings Comprehensive [place]. Panel Fast 6 Months E78.00 - Pure hypercholesterolemia, unspecified, Z00.00 - Encounter for general adult medical examination without abnormal findings TSH reflex Free T4 6 Months E78.00 - Pure hypercholesterolemia, unspecified, Z00.00 - Encounter for general adult medical examination without abnormal findings UA CC w/rflx Micro + Cult 6 Months R30.0 - Dysuria, Z00.00 - Encounter for general adult medical examination without abnormal findings Medications: New fluconazole may repeat second dose 72 hrs after first dose if symptoms persist 150 mg PO Q3D 2 tabs 0RF 2 doses
== END 2025-04-21 17:19 | disposition home or self-care (01) ==
LOC: HO.HMCH 16:31
PROVIDERS: PCP Internal Medicine; Visit Provider Internal Medicine
DX: M81.0 Age-related osteoporosis without current pathological fracture (principal); E06.3 Autoimmune thyroiditis; E04.2 Nontoxic multinodular goiter; R79.89 Other specified abnormal findings of blood chemistry; E55.9 Vitamin D deficiency, unspecified; M51.360 Other intervertebral disc degeneration, lumbar region with discogenic back pain only; N89.8 Other specified noninflammatory disorders of vagina; G47.00 Insomnia, unspecified; E66.3 Overweight; Z12.31 Encounter for screening mammogram for malignant neoplasm of breast

== ENCOUNTER → 2025-04-21 16:30 | Outpatient (BNVA) | payer OTHER, SELFPAY | PROVIDERS: PCP Internal Medicine; Visit Provider Internal Medicine | DX: M81.0 Age-related osteoporosis without current pathological fracture (principal); M51.360 Other intervertebral disc degeneration, lumbar region with discogenic back pain only; E06.3 Autoimmune thyroiditis; E04.2 Nontoxic multinodular goiter; R79.89 Other specified abnormal findings of blood chemistry; E55.9 Vitamin D deficiency, unspecified; N89.8 Other specified noninflammatory disorders of vagina; G47.00 Insomnia, unspecified; E66.3 Overweight; Z68.27 Body mass index [BMI] 27.0-27.9, adult | CPT/HCPCS: 96127; 99212 ==

== ENCOUNTER 2025-07-12 07:07 | Outpatient (REF) | payer OTHER, SELFPAY | END 2025-07-12 07:08 | disposition home or self-care (01) | LOC: HO.MAMMO 07:07 | PROVIDERS: Internal Medicine Endocrinology, Diabetes & Metabolism; PCP Internal Medicine; Visit Provider Internal Medicine | DX: M81.0 Age-related osteoporosis without current pathological fracture (principal); Z12.31 Encounter for screening mammogram for malignant neoplasm of breast | CPT/HCPCS: 77063; 77067; 82523 ==

== ENCOUNTER → 2025-07-12 07:45 | Outpatient (BNV) | payer OTHER, SELFPAY | PROVIDERS: PCP Internal Medicine; Visit Provider Internal Medicine | DX: Z12.31 Encounter for screening mammogram for malignant neoplasm of breast (principal) | CPT/HCPCS: 77063; 77067 ==